=== PATIENT | female | born 1955 | race Caucasian/White ===

== ENCOUNTER → 2019-07-25 11:39 | Outpatient (CLI) | payer OTHER, MEDICAID, SELFPAY ==
[2019-07-27 15:21] LABS: Fecal Immunochemical Test NOT DETECTED (NOT DETECTED)
== END ==
PROVIDERS: PCP Nurse Practitioner; Visit Provider Nurse Practitioner
DX: Z12.11 Encounter for screening for malignant neoplasm of colon (principal)
CPT/HCPCS: 82274

== ENCOUNTER → 2019-10-23 11:48 | Outpatient (CLI) | payer OTHER, MEDICAID, SELFPAY ==
--- NOTE | 2019-10-23 11:50 | DI.RAD.S_ITS ---
PROCEDURE: XR CHEST 2V INDICATIONS: shortness of breath, cough TECHNIQUE: 2 views of the chest were acquired. COMPARISON: [facility], CHEST 2 VIEW, 10/05/2017, 16:09. [facility], , CHEST 2 VIEW, 08/27/2017, 14:05. FINDINGS: Surgical changes and devices: None. Lungs and pleura: Lungs are abnormal, with severe pulmonary hyperexpansion. No pleural effusions or pneumothorax. Mediastinum: Mediastinal contours are normal. Heart size is normal. Bones and chest wall: No suspicious bony abnormalities. Soft tissues appear unremarkable. IMPRESSION: Severe COPD with pulmonary hyperexpansion but no pneumonia or neoplasm is found. Dictated by: Charanjit Vivas M.D. on 10/23/2019 at 15:02 Approved by: Charanjit Vivas M.D. on 10/23/2019 at 15:02
== END ==
PROVIDERS: PCP Nurse Practitioner; Referring Provider Nurse Practitioner; Visit Provider Nurse Practitioner
DX: R06.02 Shortness of breath (principal); J44.1 Chronic obstructive pulmonary disease with (acute) exacerbation; R05 Cough; R50.9 Fever, unspecified
CPT/HCPCS: 71046

== ENCOUNTER → 2019-11-21 12:01 | Outpatient (CLI) | payer OTHER, MEDICAID, SELFPAY ==
[2019-11-21 13:05] LABS: Hematocrit 40.1 % (36-46); Hemoglobin 13.4 g/dL (12.0-16.0); Mean Corpuscular HGB Conc 33.4 % (30-36); Mean Corpuscular Hemoglobin 31.3 PG (26-34); Mean Corpuscular Volume 93.6 fL (80-100); Platelet Count 309 X10^3/uL (150-400); Red Blood Cell Count 4.28 X10^6/uL (4.0-5.2); Red Cell Distribution Width 12.4 % (11.6-14.8); White Blood Cell Count 7.2 X10^3/uL (4.5-11.0)
[2019-11-21 13:47] LABS: Alanine Aminotransferase 19 IU/L (<35); Albumin 4.4 g/dL (3.5-5.0); Albumin Globulin Ratio 1.6 (1.0-2.8); Alkaline Phosphatase 68 U/L (38-126); Aspartate Aminotransferase 26 IU/L (14-36); BUN Creatinine Ratio 15.7 (6-22); Bilirubin Total 0.4 mg/dL (0.2-1.3); Blood Urea Nitrogen 11 mg/dL (7-17); Calcium 10.1 mg/dL (8.4-10.2); Carbon Dioxide 36 mmol/L (22-32); Chloride 95 mmol/L (98-107); Cholesterol 189 mg/dL (140-199); Estimated Glomerular Filt Rate > 60.0 mL/min (>60); Globulin 2.7 g/dL (1.7-4.1); Glucose 124 mg/dL (80-110); HDL Cholesterol 45 mg/dL (40-60); HEMOLYSIS < 15 (0-50); LDL Cholesterol Calculated 130 mg/dL (<100); Potassium 4.5 mmol/L (3.4-5.1); Sodium 140 mmol/L (137-145); Total Protein 7.1 g/dL (6.3-8.2); Triglycerides 72 mg/dL (35-150)
[2019-11-21 15:33] LABS: Neutrophils Absolute Manual 4824 /uL (3000-5900); Total Cells Counted 100
[2019-11-21 15:34] LABS: RBC Morphology Normal Morphology
== END ==
PROVIDERS: PCP Nurse Practitioner; Referring Provider Nurse Practitioner; Visit Provider Nurse Practitioner
DX: J96.90 Respiratory failure, unspecified, unspecified whether with hypoxia or hypercapnia (principal); R63.0 Anorexia; R64 Cachexia
CPT/HCPCS: 36415; 80053; 80061; 85025

== ENCOUNTER 2019-11-21 14:55 | Observation (INO) | payer OTHER, MEDICAID, SELFPAY ==
[2019-11-21] VITALS (16 sets, daily range): BP systolic 99–177; BP diastolic 64–86; PULSE 106–122; RESP 16–45; TEMP 36.4–36.8; O2SAT 67–99; BMI 17.9
--- NOTE | 2019-11-21 15:27 | DI.RAD.S_ITS ---
PROCEDURE: XR CHEST 1V INDICATIONS: respiratory distress, hx of COPD TECHNIQUE: One view of the chest was acquired. COMPARISON: [facility], CR, XR CHEST 2V, 10/23/2019, 11:50. FINDINGS: Surgical changes and devices: None. Lungs and pleura: Lungs are clear. Hyperinflation is seen. No pleural effusions or pneumothorax. Mediastinum: Mediastinal contours appear normal. Heart size is normal. Bones and chest wall: No suspicious bony lesions. Overlying soft tissues appear unremarkable. IMPRESSION: COPD. No acute pulmonary pathology. Dictated by: Donny Parsons M.D. on 11/21/2019 at 16:24 Approved by: Donny Parsons M.D. on 11/21/2019 at 16:24
[2019-11-21] MEDS: ALBUTEROL/IPRATROPIUM 3 ML AMPUL INH ×3 (15:36→23:17)
[2019-11-21 15:41] LABS: Add Manual Diff / Slide Review NO; Basophils Absolute Auto 0 /uL (0-100); Basophils Percent Auto 0.3 % (0-2); Eosinophils Absolute Auto 0 /uL (0-450); Eosinophils Percent Auto 0.5 % (2-4); Hematocrit 38.9 % (36-46); Hemoglobin 13.3 g/dL (12.0-16.0); Lymphocytes Absolute Auto 1500 /uL (1100-4500); Lymphocytes Percent Auto 15.6 % (25-40); Mean Corpuscular HGB Conc 34.1 % (30-36); Mean Corpuscular Hemoglobin 31.8 PG (26-34); Mean Corpuscular Volume 93.3 fL (80-100); Monocytes Absolute Auto 400 /uL (0-900); Monocytes Percent Auto 4.1 % (3-14); Neutrophils Absolute Auto 7500 /uL (1500-7000); Neutrophils Percent Auto 79.5 % (50-75); Platelet Count 320 X10^3/uL (150-400); Red Blood Cell Count 4.17 X10^6/uL (4.0-5.2); Red Cell Distribution Width 12.6 % (11.6-14.8); White Blood Cell Count 9.4 X10^3/uL (4.5-11.0)
[2019-11-21 15:42] LABS: Prothrombin Time 11.7 SECONDS (10.1-12.7)
[2019-11-21 15:44] LABS: PTT Partial Thromboplastin Tim 31 SECONDS (26.4-36.2)
[2019-11-21] MEDS: SODIUM CHLORIDE 0.9% 1,000 ML 150 ML IV (15:48)
[2019-11-21] MEDS: methylPREDNISolone 125 MG/2 ML VIAL IV (15:48)
[2019-11-21 15:50] LABS: Creatine Kinase 35 U/L (30-135); Magnesium 2.1 mg/dL (1.6-2.3)
[2019-11-21 15:51] LABS: Alanine Aminotransferase 20 IU/L (<35); Albumin 4.5 g/dL (3.5-5.0); Albumin Globulin Ratio 1.5 (1.0-2.8); Alkaline Phosphatase 70 U/L (38-126); Aspartate Aminotransferase 31 IU/L (14-36); BUN Creatinine Ratio 18.3 (6-22); Bacteria Urine None Seen; Bilirubin Total 0.4 mg/dL (0.2-1.3); Blood Urea Nitrogen 11 mg/dL (7-17); Calcium 9.8 mg/dL (8.4-10.2); Carbon Dioxide 37 mmol/L (22-32); Chloride 96 mmol/L (98-107); Estimated Glomerular Filt Rate > 60.0 mL/min (>60); Globulin 3.1 g/dL (1.7-4.1); Glucose 136 mg/dL (80-110); HEMOLYSIS < 15 (0-50); Lactate (Lactic Acid) 0.6 mmol/L (0.7-2.1); Potassium 4.3 mmol/L (3.4-5.1); RBC Urine None Seen (0-5/HPF); Sodium 139 mmol/L (137-145); Total Protein 7.6 g/dL (6.3-8.2)
[2019-11-21 15:53] LABS: Appearance Urine UA CLEAR; Bilirubin Urine UA NEGATIVE (NEGATIVE); Color Urine UA YELLOW; Glucose Urine UA NEGATIVE (Negative); Ketones Urine UA NEGATIVE (NEGATIVE); Leukocyte Esterase Urine UA NEGATIVE (NEGATIVE); Nitrite Urine UA NEGATIVE (Negative); Occult Blood Urine UA NEGATIVE (Negative); Protein Urine UA NEGATIVE (Negative); Specific Gravity Urine UA 1.015 (1.000-1.035); Urobilinogen Urine UA 0.2 E.U./dL (0.2)
[2019-11-21 16:00] LABS: Culture Indicated Urine Cult Not Indicated; WBC Urine 0-1/HPF (0-5/HPF)
[2019-11-21 16:01] LABS: PCO2 ABG 63.2 mmHg (35-45); PO2 ABG 76 mmHg (80-100); pH ABG 7.38 (7.35-7.45)
[2019-11-21 16:02] LABS: Troponin I < 0.012 ng/mL (0.01-0.034)
[2019-11-21 16:02] LABS: Fractionated Inspired Oxygen 28; HCO3 ABG 38 mmol/L (22-26); Oxygen Saturation ABG 94 % (95-100); TCO2 ABG 40 mmol/L (21-31)
[2019-11-21 16:05] LABS: Procalcitonin < 0.05 ng/mL (<0.5)
[2019-11-21] MEDS: ALBUTEROL 2.5 MG/3 ML NEB (ADULT) INH (16:15)
--- NOTE | 2019-11-21 16:23 | ED_ITS ---
HPI - SOB/Dyspnea <JONES Chen - Last Filed: 11/21/19 20:49> General Chief Complaint: Upper Respiratory Symptoms Stated Complaint: needs lungs checked out Time Seen by Provider: 11/21/19 15:08 Source: patient and family Mode of arrival: Wheelchair Limitations: no limitations History of Present Illness HPI Narrative: This is a 64 year female, smoker, with history of oxygen-depend ent on 1.5 liter with severe and end-stage COPD presents to ED with spouse with chief complain of increasing short of breath with minimal exertion for last several days but has been gradually worsening since June. Patient reports she has been increasing O2 by nasal cannula up to 2 L, increasing productive cough, slight fever up to 100 degree. Patient reports she takes daily azithromycin 250 mg to maintain and treat inflammation and she had completed a short course of prednisone in the beginning of October. Patient denies recent foreign travel, known exposure to illness. Patient reports has not received flu or pneumococcal vaccination in the past. Patient uses tree allergy CPAP at [facility]. She uses DuoNeb q.4 hours at home. 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 Clark at [facility] but has not seen the provider for several months. Patient reports she has history intubation and using BiPAP and hospitalized in [facility] in the past. Patient states she rather not be intubated but she states a full code for the code status. Patient was at [facility]ois's office today and was referred to ED for increased shortness of breath and hypoxia down to 87% in room air during ambulation. Related Data Home Medications Medication Instructions Recorded Confirmed acetaminophen [Tylenol] 325 mg PO PRN PRN 11/21/19 11/21/19 ibuprofen 200 mg PO PRN PRN 11/21/19 11/21/19 melatonin 1 tab PO BEDTIME 11/21/19 11/21/19 Previous Rx's Medication Instructions Recorded Disabled Parking Permit See Rx Instructions .ROUTE 03/20/19 .COMPLEX #1 unit azithromycin 250 mg tablet 250 mg PO DAILY #30 tab 03/20/19 food supplemt, lactose-reduced 1 each PO 5XD #65604 ml 03/20/19 trazodone 50 mg tablet 150 mg PO HS PRN #90 tab 03/20/19 Ventolin HFA 90 mcg/actuation 2 puff INHALATION Q4-6H PRN #8 09/21/19 aerosol inhaler gram NS alprazolam 0.25 mg tablet 0.25 mg PO BID #30 tab 10/23/19 mometasone-formoterol HFA 200 2 puff INHALATION BID #13 gram 10/23/19 mcg-5 mcg/actuation aerosol inhaler portable oxygen system #1 ea 10/23/19 ipratropium 0.5 mg-albuterol 3 mg 3 ml INHALATION Q6H PRN #360 ml 10/27/19 (2.5 mg base)/3 mL nebulization soln prednisone 40 mg PO DAILY 4 Days #8 tab 11/22/19 Allergies Allergy/AdvReac Type Severity Reaction Status Date / Time cephalexin Allergy Severe Anaphalaxis Verified 11/21/19 15:48 Penicillins AdvReac Mild DIARRHEA Verified 11/21/19 15:48 Review of Systems <JONES Chen - Last Filed: 11/21/19 20:49> Review of Systems Narrative: General: Denies subjective fever and Tmax upto 100 once at home, chills, fatigue, malaise, sweats. HEENT: Denies sinus pain, ear pain, sore throat, difficulty swallowing, dizziness. Respiratory: See HPI Cardiovascular: Denies chest pain, palpitations, orthopnea, edema. Gastrointestinal: Denies nausea, vomiting, abdominal pain, diarrhea, constipation, melena. : Denies dysuria, frequency, incontinence, hematuria, urinary retention. Musculoskeletal: Denies weakness, joint pain or bony pain. Skin: Denies rash, skin lesions, or other. Neurologic: Denies weakness, headache, numbness, change in speech, confusion, se izures, incoordination. Psychiatric: No concerning psychosocial issues. 12-point review of systems is negative except for those stated above. Patient History <JONES Chen - Last Filed: 11/21/19 20:49> Medical History Abnormal chest x-ray (Chronic) Acne (Chronic) Anxiety (Chronic ~2008) Carpal tunnel syndrome (Chronic ~1982) Chicken pox (Resolved ~1962) Chronic back pain (Chronic ~1967) Chronic cough (Chronic) Colitis (Chronic) COPD (chronic obstructive pulmonary disease) (Chronic) Crohn's disease (Chronic) Fecal incontinence (Chronic ~1981) Fractures (Resolved ~1962) GERD (gastroesophageal reflux disease) (Chronic) Headache (Chronic) Heavy menstrual period (Inactive) History of urinary incontinence (Chronic ~2014) Irregular menstrual cycle (Inactive ~1976) Irritable bowel syndrome (Chronic) Measles (Resolved ~1962) Mumps (Resolved) Neck pain (Chronic) Osteoarthritis (Chronic) Osteoporosis (Chronic) Plantar warts (Chronic) Shoulder pain (Chronic ~2013) TIA (transient ischemic attack) (Chronic ~2014) Surgical History Colon polyps (Resolved) History of appendectomy (Resolved) History of tonsillectomy (Resolved) Family History Mother Breast cancer Grandfather No problems noted. Grandmother Cancer Grandfather Cancer Social History household members: significant other Smoking Status: Current every day smoker alcohol intake: never Smoking Status: Current every day smoker alcohol intake frequency: 0-2 drinks per day Substance Use Type: does not use Exam <JONES Chen - Last Filed: 11/21/19 20:49> Narrative Exam Narrative: GEN: Alert, oriented x 3, ill-appearing and under nourished, and in severe respiratory distress. Head: Normal cephalic, atraumatic. No scalp or temporal tenderness, palpable mass or rash. EYES: Pupils are equal, round, and reactive to light and accommodation. Extraocular muscles are intact bilaterally. There is no subconjunctival hemorrhage, exudate and sclera non-icteric. ENT: Bilateral auditory canals and tympanic membranes clear. Hearing grossly intact. Nose without bleeding, purulent discharge or deviation. Facial sinuses nontender to palpate. Mucous membrane moist, no mucosal lesion. Throat without erythema, tonsillar hypertrophy or exudate. Uvula in midline, airway patent. Neck: Trachea in midline. No JVD, non-tender without lymphadenopathy. No masses or thyroid megaly. Supple, non-tender and no meningeal signs. CARDIAC: Normal regular tachy rate without murmurs, gallops, or rubs. No chest wall tenderness. No peripheral edema, cyanosis but pallor. Capillary refill is less than 2 seconds. RESPIRATORY: Pursed lip breathing, unable to complete a sentence, tachypnea of 40/min with o2 sat in 91% on 2Liter by NC. Increased work of breathing with labored effort to breathe with tracheal tugging. Severely decreased lung sounds with scattered wheezing. ABD: Abdomen soft, nontender and non-distended. No guarding or rebound tender ness to palpate. Bowel sounds are normal in all 4 quadrants. There is no palpable masses or organomegaly. EXT: Full painless ROM of all extremities with no loss of sensation, strength, effusion or edema. SKIN: Warm, dry. No erythema, lesions or rash over visible areas. BACK: Nontender without deformity or crepitance. No flank tenderness. NEUROLOGICAL: Alert and oriented to place, time and person. Sensation and motor function intact bilaterally. No facial droops, dysphasia. PSYCHIATRIC: Good judgement and reason, without hallucinations, abnormal affect or abnormal behaviors during the examination. Patient is not suicidal. Initial Vital Signs Initial Vital Signs: Vital Signs Temperature 97.6 F 11/21/19 15:00 Pulse Rate 120 H 11/21/19 15:00 Respiratory Rate 45 H 11/21/19 15:00 Blood Pressure 177/86 H 11/21/19 15:00 Pulse Oximetry 94 11/21/19 15:00 <Lorna Cardozo MD - Last Filed: 11/24/19 09:10> Initial Vital Signs Initial Vital Signs: Vital Signs Temperature 97.6 F 11/21/19 15:00 Pulse Rate 120 H 11/21/19 15:00 Respiratory Rate 45 H 11/21/19 15:00 Blood Pressure 177/86 H 11/21/19 15:00 Pulse Oximetry 94 11/21/19 15:00 Scores <JONES Chen - Last Filed: 11/21/19 20:49> GCS [place] coma scale eye opening: Spontaneous [place] coma scale verbal response: Orientated [place] coma scale motor response: Obey commands [place] coma scale total score: 15 Course <JONES Chen - Last Filed: 11/21/19 20:49> Orders Ordered: Discontinued Medications Acetaminophen (Tylenol) 650 mg PO Q6HR PRN PRN Reason: Fever/Mild Pain (1-3) Albuterol (Ventolin) 2.5 mg INH NOW ONE Stop: 11/21/19 15:58 Last Admin: 11/21/19 16:15 Dose: 2.5 mg Documented by: LILI Albuterol (Ventolin) 2.5 mg INH [id number] PRN PRN Reason: Shortness Of Breath Last Admin: 11/22/19 13:27 Dose: 2.5 mg Documented by: ARDEN Albuterol/Ipratropium (Duoneb) 3 ml INH NOW ONE Stop: 11/21/19 15:27 Last Admin: 11/21/19 15:36 Dose: 3 ml Documented by: LILI Albuterol/Ipratropium (Duoneb) 3 ml INH RTQ4HR PRN PRN Reason: Shortness Of Breath Albuterol/Ipratropium (Duoneb) 3 ml INH RTQ4HR PATRICIA Last Admin: 11/22/19 15:16 Dose: 3 ml Documented by: Admin: 11/22/19 10:52 Dose: 3 ml Documented by: Admin: 11/22/19 08:00 Dose: 3 ml Documented by: Admin: 11/22/19 03:57 Dose: Not Given Documented by: Admin: 11/21/19 23:17 Dose: 3 ml Documented by: Admin: 11/21/19 19:49 Dose: 3 ml Documented by: LIZ Alprazolam (Xanax) 0.25 mg PO BID PRN PRN Reason: Anxiety Last Admin: 11/22/19 02:00 Dose: 0.25 mg Documented by: LILIANA Azithromycin (Zithromax) 250 mg PO DAILY [facility] Last Admin: 11/22/19 08:49 Dose: 250 mg Documented by: Admin: 11/21/19 22:10 Dose: 250 mg Documented by: DEREK Enoxaparin Sodium (Lovenox) 40 mg SUBCUT DAILY [facility] Last Admin: 11/22/19 09:02 Dose: Not Given Documented by: DIANE Sodium Chloride (Normal Saline 0.9%) 1,000 mls @ 150 mls/hr IV CONT PATRICIA Stop: 11/21/19 19:11 Last Infusion: 11/21/19 18:00 Dose: 0 mls/hr Documented by: Admin: 11/21/19 15:48 Dose: 150 mls/hr Documented by: TON Magnesium Sulfate (Magnesium Sulfate) 2 gm in 50 mls @ 25 mls/hr IV NOW ONE Stop: 11/21/19 18:29 Last Infusion: 11/21/19 18:12 Dose: 0 mls/hr Documented by: TON Cosigned by: BETTIE Admin: 11/21/19 16:58 Dose: 25 mls/hr Documented by: TON Cosigned by: KIM Lorazepam (Ativan) 1 mg IV NOW ONE Stop: 11/21/19 16:56 Last Admin: 11/21/19 17:00 Dose: 1 mg Documented by: TON Methylprednisolone (Solu-Medrol 125 Mg Vial) 125 mg IV NOW ONE Stop: 11/21/19 15:30 Last Admin: 11/21/19 15:48 Dose: 125 mg Documented by: TON Prednisone (Deltasone) 40 mg PO DAILY [facility] Last Admin: 11/22/19 08:49 Dose: 40 mg Documented by: DIANE Trazodone HCl (Desyrel) 150 mg PO BEDTIME [facility] Last Admin: 11/21/19 22:07 Dose: 150 mg Documented by: DEREK Vital Signs Vital signs: Vital Signs - 8 hr 11/21/19 15:00 11/21/19 15:30 11/21/19 15:45 Temperature 97.6 F Pulse Rate 120 H 119 H 122 H Respiratory Rate 45 H 39 H 32 H Blood Pressure 177/86 H Blood Pressure [Right Arm] 136/76 128/72 Pulse Oximetry 94 96 96 11/21/19 15:54 11/21/19 16:00 11/21/19 16:15 Temperature Pulse Rate 114 H 114 H 115 H Respiratory Rate 43 H 36 H Blood Pressure Blood Pressure [Right Arm] 132/79 142/84 H Pulse Oximetry 96 67 L 94 11/21/19 16:30 11/21/19 16:37 11/21/19 16:38 Temperature Pulse Rate 116 H 115 H Respiratory Rate 36 H 24 Blood Pressure 130/78 Blood Pressure [Right Arm] 130/78 Pulse Oximetry 95 94 <Lorna Cardozo MD - Last Filed: 11/24/19 09:10> Orders Ordered: Discontinued Medications Acetaminophen (Tylenol) 650 mg PO Q6HR PRN PRN Reason: Fever/Mild Pain (1-3) Albuterol (Ventolin) 2.5 mg INH NOW ONE Stop: 11/21/19 15:58 Last Admin: 11/21/19 16:15 Dose: 2.5 mg Documented by: LILI Albuterol (Ventolin) 2.5 mg INH [id number] PRN PRN Reason: Shortness Of Breath Last Admin: 11/22/19 13:27 Dose: 2.5 mg Documented by: ARDEN Albuterol/Ipratropium (Duoneb) 3 ml INH NOW ONE Stop: 11/21/19 15:27 Last Admin: 11/21/19 15:36 Dose: 3 ml Documented by: LILI Albuterol/Ipratropium (Duoneb) 3 ml INH RTQ4HR PRN PRN Reason: Shortness Of Breath Albuterol/Ipratropium (Duoneb) 3 ml INH RTQ4HR [facility] Last Admin: 11/22/19 15:16 Dose: 3 ml Documented by: Admin: 11/22/19 10:52 Dose: 3 ml Documented by: Admin: 11/22/19 08:00 Dose: 3 ml Documented by: Admin: 11/22/19 03:57 Dose: Not Given Documented by: Admin: 11/21/19 23:17 Dose: 3 ml Documented by: Admin: 11/21/19 19:49 Dose: 3 ml Documented by: LIZ Alprazolam (Xanax) 0.25 mg PO BID PRN PRN Reason: Anxiety Last Admin: 11/22/19 02:00 Dose: 0.25 mg Documented by: LILIANA Azithromycin (Zithromax) 250 mg PO DAILY [facility] Last Admin: 11/22/19 08:49 Dose: 250 mg Documented by: Admin: 11/21/19 22:10 Dose: 250 mg Documented by: DEREK Enoxaparin Sodium (Lovenox) 40 mg SUBCUT DAILY [facility] Last Admin: 11/22/19 09:02 Dose: Not Given Documented by: DIANE Sodium Chloride (Normal Saline 0.9%) 1,000 mls @ 150 mls/hr IV CONT PATRICIA Stop: 11/21/19 19:11 Last Infusion: 11/21/19 18:00 Dose: 0 mls/hr Documented by: Admin: 11/21/19 15:48 Dose: 150 mls/hr Documented by: TON Magnesium Sulfate (Magnesium Sulfate) 2 gm in 50 mls @ 25 mls/hr IV NOW ONE Stop: 11/21/19 18:29 Last Infusion: 11/21/19 18:12 Dose: 0 mls/hr Documented by: TON Cosigned by: BETTIE Admin: 11/21/19 16:58 Dose: 25 mls/hr Documented by: TON Cosigned by: KIM Lorazepam (Ativan) 1 mg IV NOW ONE Stop: 11/21/19 16:56 Last Admin: 11/21/19 17:00 Dose: 1 mg Documented by: TON Methylprednisolone (Solu-Medrol 125 Mg Vial) 125 mg IV NOW ONE Stop: 11/21/19 15:30 Last Admin: 11/21/19 15:48 Dose: 125 mg Documented by: TON Prednisone (Deltasone) 40 mg PO DAILY [facility] Last Admin: 11/22/19 08:49 Dose: 40 mg Documented by: DIANE Trazodone HCl (Desyrel) 150 mg PO BEDTIME [facility] Last Admin: 11/21/19 22:07 Dose: 150 mg Documented by: DEREK Vital Signs Vital signs: Vital Signs - 8 hr 11/21/19 15:00 11/21/19 15:30 11/21/19 15:45 Temperature 97.6 F Pulse Rate 120 H 119 H 122 H Respiratory Rate 45 H 39 H 32 H Blood Pressure 177/86 H Blood Pressure [Right Arm] 136/76 128/72 Pulse Oximetry 94 96 96 11/21/19 15:54 11/21/19 16:00 11/21/19 16:15 Temperature Pulse Rate 114 H 114 H 115 H Respiratory Rate 43 H 36 H Blood Pressure Blood Pressure [Right Arm] 132/79 142/84 H Pulse Oximetry 96 67 L 94 11/21/19 16:30 11/21/19 16:37 11/21/19 16:38 Temperature Pulse Rate 116 H 115 H Respiratory Rate 36 H 24 Blood Pressure 130/78 Blood Pressure [Right Arm] 130/78 Pulse Oximetry 95 94 MDM - SOB/Dyspnea <Newton Henriquez-Oras, [employer] OPERATOR - Last Filed: 11/21/19 20:49> Differential Diagnosis Differential diagnosis: Likely acute exacerbation of chronic obstructive airways disease, community acquired pneumonia and other (Influenza) Medical Records Attestation: I reviewed the patient's medical records. Lab Data Attestation: I reviewed the patient's lab results. Result diagrams: 11/22/19 04:50 11/22/19 04:50 Labs: Lab Results 11/21/19 11/21/19 11/21/19 Range/Units 15:23 15:23 15:23 WBC 9.4 (4.5-11.0) X10^3/uL RBC 4.17 (4.0-5.2) X10^6/uL Hgb 13.3 (12.0-16.0) g/dL Hct 38.9 (36-46) % MCV 93.3 (80-100) fL MCH 31.8 (26-34) PG MCHC 34.1 (30-36) % RDW 12.6 (11.6-14.8) % Plt Count 320 (150-400) X10^3/uL Neut % (Auto) 79.5 H (50-75) % Lymph % (Auto) 15.6 L (25-40) % [place] % (Auto) 4.1 (3-14) % Eos % (Auto) 0.5 L (2-4) % Baso % (Auto) 0.3 (0-2) % Neut # (Auto) 7500 H (9331-3947) /uL Lymph # (Auto) 1500 (7263-1746) /uL [place] # (Auto) 400 (0-900) /uL Eos # (Auto) 0 (0-450) /uL Baso # (Auto) 0 (0-100) /uL PT 11.7 (10.1-12.7) SECONDS INR 1.0 (0.9-1.3) APTT 31 (26.4-36.2) SECONDS ABG pH (7.35-7.45) ABG pCO2 (35-45) mmHg ABG pO2 (80-100) mmHg ABG HCO3 (22-26) mmol/L ABG Total CO2 (21-31) mmol/L ABG O2 Saturation (95-100) % ABG Base Excess (-2-2) mmol/L FiO2 Sodium (137-145) mmol/L Potassium (3.4-5.1) mmol/L Chloride (98-107) mmol/L Carbon Dioxide (22-32) mmol/L BUN (7-17) mg/dL Creatinine (0.52-1.04) mg/dL Estimated GFR (>60) mL/min BUN/Creatinine Ratio (6-22) Glucose (80-110) mg/dL Lactate (0.7-2.1) mmol/L Calcium (8.4-10.2) mg/dL Magnesium 2.1 (1.6-2.3) mg/dL Total Bilirubin (0.2-1.3) mg/dL AST (14-36) IU/L ALT (<35) IU/L Alkaline Phosphatase (38-126) U/L Total Creatine Kinase 35 (30-135) U/L CK-MB (CK-2) TNP CK-MB (CK-2) Rel Index TNP Troponin I < 0.012 (0.01-0.034) ng/mL Total Protein (6.3-8.2) g/dL Albumin (3.5-5.0) g/dL Globulin (1.7-4.1) g/dL Albumin/Globulin Ratio (1.0-2.8) Procalcitonin (<0.5) ng/mL Urine Color Urine Appearance Urine pH (4.5-8.0) Ur Specific [place] (1.000-1.035) Urine Protein (Negative) Urine Glucose (UA) (Negative) g/dL Urine Ketones (NEGATIVE) Urine Occult Blood (Negative) Urine Nitrate (Negative) Urine Bilirubin (NEGATIVE) Urine Urobilinogen (0.2) E.U./dL Ur Leukocyte Esterase (NEGATIVE) Urine RBC (0-5/HPF) Urine WBC (0-5/HPF) Urine Bacteria (None) Ur Culture Indicated? Chlamy pneumoniae PCR (Not Detect) Adenovirus (PCR) (Not Detect) B.parapertussis DNA PCR (Not Detect) Coronavirus OC43 (PCR) (Not Detect) Coronavirus HKU1 (PCR) (Not Detect) Coronavirus 229E (PCR) (Not Detect) Coronavirus NL63 (PCR) (Not Detect) Human Metapneumovir PCR (Not Detect) Influenza Type A (PCR) (Not Detect) Influenza Type B (PCR) (Not Detect) M. pneumoniae (PCR) (Not Detect) Parainfluenza 1 (PCR) (Not Detect) Parainfluenza 2 (PCR) (Not Detect) Parainfluenza 3 (PCR) (Not Detect) Parainfluenza 4 (PCR) (Not Detect) RSV (PCR) (Not Detect) Entero/Rhino (PCR) (Not Detect) 11/21/19 11/21/19 11/21/19 Range/Units 15:23 15:23 15:23 WBC (4.5-11.0) X10^3/uL RBC (4.0-5.2) X10^6/uL Hgb (12.0-16.0) g/dL Hct (36-46) % MCV (80-100) fL MCH (26-34) PG MCHC (30-36) % RDW (11.6-14.8) % Plt Count (150-400) X10^3/uL Neut % (Auto) (50-75) % Lymph % (Auto) (25-40) % [place] % (Auto) (3-14) % Eos % (Auto) (2-4) % Baso % (Auto) (0-2) % Neut # (Auto) (0324-5146) /uL Lymph # (Auto) (2462-5376) /uL [place] # (Auto) (0-900) /uL Eos # (Auto) (0-450) /uL Baso # (Auto) (0-100) /uL PT (10.1-12.7) SECONDS INR (0.9-1.3) APTT (26.4-36.2) SECONDS ABG pH (7.35-7.45) ABG pCO2 (35-45) mmHg ABG pO2 (80-100) mmHg ABG HCO3 (22-26) mmol/L ABG Total CO2 (21-31) mmol/L ABG O2 Saturation (95-100) % ABG Base Excess (-2-2) mmol/L FiO2 Sodium 139 (137-145) mmol/L Potassium 4.3 (3.4-5.1) mmol/L Chloride 96 L (98-107) mmol/L Carbon Dioxide 37 H (22-32) mmol/L BUN 11 (7-17) mg/dL Creatinine 0.60 (0.52-1.04) mg/dL Estimated GFR > 60.0 (>60) mL/min BUN/Creatinine Ratio 18.3 (6-22) Glucose 136 H (80-110) mg/dL Lactate 0.6 L (0.7-2.1) mmol/L Calcium 9.8 (8.4-10.2) mg/dL Magnesium (1.6-2.3) mg/dL Total Bilirubin 0.4 (0.2-1.3) mg/dL AST 31 (14-36) IU/L ALT 20 (<35) IU/L Alkaline Phosphatase 70 (38-126) U/L Total Creatine Kinase (30-135) U/L CK-MB (CK-2) CK-MB (CK-2) Rel Index Troponin I (0.01-0.034) ng/mL Total Protein 7.6 (6.3-8.2) g/dL Albumin 4.5 (3.5-5.0) g/dL Globulin 3.1 (1.7-4.1) g/dL Albumin/Globulin Ratio 1.5 (1.0-2.8) Procalcitonin < 0.05 (<0.5) ng/mL Urine Color Urine Appearance Urine pH (4.5-8.0) Ur Specific [place] (1.000-1.035) Urine Protein (Negative) Urine Glucose (UA) (Negative) g/dL Urine Ketones (NEGATIVE) Urine Occult Blood (Negative) Urine Nitrate (Negative) Urine Bilirubin (NEGATIVE) Urine Urobilinogen (0.2) E.U./dL Ur Leukocyte Esterase (NEGATIVE) Urine RBC (0-5/HPF) Urine WBC (0-5/HPF) Urine Bacteria (None) Ur Culture Indicated? Chlamy pneumoniae PCR (Not Detect) Adenovirus (PCR) (Not Detect) B.parapertussis DNA PCR (Not Detect) Coronavirus OC43 (PCR) (Not Detect) Coronavirus HKU1 (PCR) (Not Detect) Coronavirus 229E (PCR) (Not Detect) Coronavirus NL63 (PCR) (Not Detect) Human Metapneumovir PCR (Not Detect) Influenza Type A (PCR) (Not Detect) Influenza Type B (PCR) (Not Detect) M. pneumoniae (PCR) (Not Detect) Parainfluenza 1 (PCR) (Not Detect) Parainfluenza 2 (PCR) (Not Detect) Parainfluenza 3 (PCR) (Not Detect) Parainfluenza 4 (PCR) (Not Detect) RSV (PCR) (Not Detect) Entero/Rhino (PCR) (Not Detect) 11/21/19 11/21/19 11/21/19 Range/Units 15:23 15:24 15:42 WBC (4.5-11.0) X10^3/uL RBC (4.0-5.2) X10^6/uL Hgb (12.0-16.0) g/dL Hct (36-46) % MCV (80-100) fL MCH (26-34) PG MCHC (30-36) % RDW (11.6-14.8) % Plt Count (150-400) X10^3/uL Neut % (Auto) (50-75) % Lymph % (Auto) (25-40) % [place] % (Auto) (3-14) % Eos % (Auto) (2-4) % Baso % (Auto) (0-2) % Neut # (Auto) (8153-3391) /uL Lymph # (Auto) (3292-6408) /uL [place] # (Auto) (0-900) /uL Eos # (Auto) (0-450) /uL Baso # (Auto) (0-100) /uL PT (10.1-12.7) SECONDS INR (0.9-1.3) APTT (26.4-36.2) SECONDS ABG pH 7.38 (7.35-7.45) ABG pCO2 63.2 H* (35-45) mmHg ABG pO2 76 L (80-100) mmHg ABG HCO3 38 H (22-26) mmol/L ABG Total CO2 40 H (21-31) mmol/L ABG O2 Saturation 94 L (95-100) % ABG Base Excess 13.0 H (-2-2) mmol/L FiO2 28 Sodium (137-145) mmol/L Potassium (3.4-5.1) mmol/L Chloride (98-107) mmol/L Carbon Dioxide (22-32) mmol/L BUN (7-17) mg/dL Creatinine (0.52-1.04) mg/dL Estimated GFR (>60) mL/min BUN/Creatinine Ratio (6-22) Glucose (80-110) mg/dL Lactate (0.7-2.1) mmol/L Calcium (8.4-10.2) mg/dL Magnesium (1.6-2.3) mg/dL Total Bilirubin (0.2-1.3) mg/dL AST (14-36) IU/L ALT (<35) IU/L Alkaline Phosphatase (38-126) U/L Total Creatine Kinase (30-135) U/L CK-MB (CK-2) CK-MB (CK-2) Rel Index Troponin I (0.01-0.034) ng/mL Total Protein (6.3-8.2) g/dL Albumin (3.5-5.0) g/dL Globulin (1.7-4.1) g/dL Albumin/Globulin Ratio (1.0-2.8) Procalcitonin (<0.5) ng/mL Urine Color Yellow Urine Appearance Clear Urine pH 7.0 (4.5-8.0) Ur Specific [place] 1.015 (1.000-1.035) Urine Protein Negative (Negative) Urine Glucose (UA) Negative (Negative) g/dL Urine Ketones Negative (NEGATIVE) Urine Occult Blood Negative (Negative) Urine Nitrate Negative (Negative) Urine Bilirubin Negative (NEGATIVE) Urine Urobilinogen 0.2 (0.2) E.U./dL Ur Leukocyte Esterase Negative (NEGATIVE) Urine RBC None seen (0-5/HPF) Urine WBC 0-1/hpf (0-5/HPF) Urine Bacteria None seen (None) Ur Culture Indicated? Cult not indicated Chlamy pneumoniae PCR Not detected (Not Detect) Adenovirus (PCR) Not detected (Not Detect) B.parapertussis DNA PCR Not detected (Not Detect) Coronavirus OC43 (PCR) Not detected (Not Detect) Coronavirus HKU1 (PCR) Not detected (Not Detect) Coronavirus 229E (PCR) Not detected (Not Detect) Coronavirus NL63 (PCR) Not detected (Not Detect) Human Metapneumovir PCR Not detected (Not Detect) Influenza Type A (PCR) Not detected (Not Detect) Influenza Type B (PCR) Not detected (Not Detect) M. pneumoniae (PCR) Not detected (Not Detect) Parainfluenza 1 (PCR) Not detected (Not Detect) Parainfluenza 2 (PCR) Not detected (Not Detect) Parainfluenza 3 (PCR) Not detected (Not Detect) Parainfluenza 4 (PCR) Not detected (Not Detect) RSV (PCR) Not detected (Not Detect) Entero/Rhino (PCR) Not detected (Not Detect) ABG Data ABG results: pH: 7.384 PCO2 63.2 PO2: 76 BE: 12 HCO3: 37.8 TCO2: 40 sO2 94% on 2L NC Interpretation: Compensated Resp acidosis Imaging Data Chest x-ray: Radiologist's Impression: [address] [address] XRay Report Signed Patient: Leydi East JMR#: [id number] : 5Acct:[id number] Age/Sex: 64 / FDate of Service: 11/21/19 Loc: ED Accession Number: [id number] Procedure: XR chest 1V Ordering Provider: Newton Martin PROCEDURE: XR CHEST 1V INDICATIONS: respiratory distress, hx of COPD TECHNIQUE: One view of the chest was acquired. COMPARISON: [facility], , XR CHEST 2V, 10/23/2019, 11:50. FINDINGS: Surgical changes and devices: None. Lungs and pleura: Lungs are clear. Hyperinflation is seen. No pleural effusions or pneumothorax. Mediastinum: Mediastinal contours appear normal. Heart size is normal. Bones and chest wall: No suspicious bony lesions. Overlying soft tissues appear unremarkable. IMPRESSION: COPD. No acute pulmonary pathology. Dictated by: Donny Parsons M.D. on 11/21/2019 at 16:24 Approved by: Donny Parsons M.D. on 11/21/2019 at 16:24 ECG Data Attestation: I personally reviewed and interpreted this ECG as follows: Prior ECG tracings: available for review Interpretation: Sinus tachycardia rate at 112 with short P are interval [place] int 116, QRS dur 82, QT/QTc 330/396 No significant changes from previous EKG. MDM Narrative Medical decision making narrative: This is a 64-year-old female, smoker, who has history of severe and end-stage COPD with intubation and BiPAP machine use presents to ED with increasing short of breath and productive cough. Patient is oxygen dependent at home at 1.5 L by nasal cannula and has been using 2 L due to increasing short of breath. Patient initially went in to see AVERY dubois for her symptoms and she was referred to ED due to hypoxia and increased short of breath. When patient was initially evaluated upon arrival, patient had severe tachypnea, increased work of breathing with tracheal tugging, labored and pursed lip breathing and she was unable to speak a full sentence due to short of breath. Patient's O2 sat on 2 L was 91% with tachycardia of 120s. Patient prefer is not to be intubated but wishes to be a full code. Lung sounds are severely decreased with mild wheezing. Chest x-ray does not show acute findings with normal heart size but lungs appears to be hyperinflated. Patient denies fever, chills, recent known exposure to illness. There is no leukocytosis but mildly elevated neutrophil. Venous CO2 was 37 with mildly elevated glucose of 136. There was no elevation of lactate or procalcitonin. EKG was sinus tachycardia rate at 112. Troponin and other cardiac enzymes were negative. Considered pneumonia but patient's lab tests and chest x-ray are not consistent with this. Patient does not have a history of heart failure. Urine test does not indicate infection. Respiratory panel was negative for virus infections. Two blood cultures were obtained and pending for results. Patient was provided with several doses of nebulizer treatments and IV Solu- Medrol 125 mg with gentle IV hydration with normal saline. Patient also was given 2 g of IV magnesium for her symptoms. Patient re-evaluated frequently by myself and noticed patient's condition is not improving significantly and appears to be tired. ABG indicates compensated respiratory acidosis. pH of 7.384, PCO2 of 63.2, PO2 of 76 and HCO3 of 37.8, sO2 of 94% while patient was on O2 by [place] on2 Liter. The patient was started on BiPAP which patient initially did not tolerated well. Patient was given 1 mg of Ativan and patient was able to tolerate the BiPAP machine. Patient's heart rate decreased to 100s with normotensive. Patient currently takes daily Azithromycin [address] Garcia for IV antibiotic medication coverage which is held at this time since patient is af ebrile with out leukocytosis and no evidence of pneumonia per x-ray test. Dr. Garcia kindly accepted patient's care for an admission for observation. <Lorna Cardozo MD - Last Filed: 11/24/19 09:10> Lab Data Labs: Lab Results 11/21/19 11/21/19 11/21/19 Range/Units 15:23 15:23 15:23 WBC 9.4 (4.5-11.0) X10^3/uL RBC 4.17 (4.0-5.2) X10^6/uL Hgb 13.3 (12.0-16.0) g/dL Hct 38.9 (36-46) % MCV 93.3 (80-100) fL MCH 31.8 (26-34) PG MCHC 34.1 (30-36) % RDW 12.6 (11.6-14.8) % Plt Count 320 (150-400) X10^3/uL Neut % (Auto) 79.5 H (50-75) % Lymph % (Auto) 15.6 L (25-40) % [place] % (Auto) 4.1 (3-14) % Eos % (Auto) 0.5 L (2-4) % Baso % (Auto) 0.3 (0-2) % Neut # (Auto) 7500 H (5443-1758) /uL Lymph # (Auto) 1500 (6934-5114) /uL [place] # (Auto) 400 (0-900) /uL Eos # (Auto) 0 (0-450) /uL Baso # (Auto) 0 (0-100) /uL PT 11.7 (10.1-12.7) SECONDS INR 1.0 (0.9-1.3) APTT 31 (26.4-36.2) SECONDS ABG pH (7.35-7.45) ABG pCO2 (35-45) mmHg ABG pO2 (80-100) mmHg ABG HCO3 (22-26) mmol/L ABG Total CO2 (21-31) mmol/L ABG O2 Saturation (95-100) % ABG Base Excess (-2-2) mmol/L FiO2 Sodium (137-145) mmol/L Potassium (3.4-5.1) mmol/L Chloride (98-107) mmol/L Carbon Dioxide (22-32) mmol/L BUN (7-17) mg/dL Creatinine (0.52-1.04) mg/dL Estimated GFR (>60) mL/min BUN/Creatinine Ratio (6-22) Glucose (80-110) mg/dL Lactate (0.7-2.1) mmol/L Calcium (8.4-10.2) mg/dL Magnesium 2.1 (1.6-2.3) mg/dL Total Bilirubin (0.2-1.3) mg/dL AST (14-36) IU/L ALT (<35) IU/L Alkaline Phosphatase (38-126) U/L Total Creatine Kinase 35 (30-135) U/L CK-MB (CK-2) TNP CK-MB (CK-2) Rel Index TNP Troponin I < 0.012 (0.01-0.034) ng/mL Total Protein (6.3-8.2) g/dL Albumin (3.5-5.0) g/dL Globulin (1.7-4.1) g/dL Albumin/Globulin Ratio (1.0-2.8) Procalcitonin (<0.5) ng/mL Urine Color Urine Appearance Urine pH (4.5-8.0) Ur Specific [place] (1.000-1.035) Urine Protein (Negative) Urine Glucose (UA) (Negative) g/dL Urine Ketones (NEGATIVE) Urine Occult Blood (Negative) Urine Nitrate (Negative) Urine Bilirubin (NEGATIVE) Urine Urobilinogen (0.2) E.U./dL Ur Leukocyte Esterase (NEGATIVE) Urine RBC (0-5/HPF) Urine WBC (0-5/HPF) Urine Bacteria (None) Ur Culture Indicated? Chlamy pneumoniae PCR (Not Detect) Adenovirus (PCR) (Not Detect) B.parapertussis DNA PCR (Not Detect) Coronavirus OC43 (PCR) (Not Detect) Coronavirus HKU1 (PCR) (Not Detect) Coronavirus 229E (PCR) (Not Detect) Coronavirus NL63 (PCR) (Not Detect) Human Metapneumovir PCR (Not Detect) Influenza Type A (PCR) (Not Detect) Influenza Type B (PCR) (Not Detect) M. pneumoniae (PCR) (Not Detect) Parainfluenza 1 (PCR) (Not Detect) Parainfluenza 2 (PCR) (Not Detect) Parainfluenza 3 (PCR) (Not Detect) Parainfluenza 4 (PCR) (Not Detect) RSV (PCR) (Not Detect) Entero/Rhino (PCR) (Not Detect) 11/21/19 11/21/19 11/21/19 Range/Units 15:23 15:23 15:23 WBC (4.5-11.0) X10^3/uL RBC (4.0-5.2) X10^6/uL Hgb (12.0-16.0) g/dL Hct (36-46) % MCV (80-100) fL MCH (26-34) PG MCHC (30-36) % RDW (11.6-14.8) % Plt Count (150-400) X10^3/uL Neut % (Auto) (50-75) % Lymph % (Auto) (25-40) % [place] % (Auto) (3-14) % Eos % (Auto) (2-4) % Baso % (Auto) (0-2) % Neut # (Auto) (1918-6527) /uL Lymph # (Auto) (7392-3763) /uL [place] # (Auto) (0-900) /uL Eos # (Auto) (0-450) /uL Baso # (Auto) (0-100) /uL PT (10.1-12.7) SECONDS INR (0.9-1.3) APTT (26.4-36.2) SECONDS ABG pH (7.35-7.45) ABG pCO2 (35-45) mmHg ABG pO2 (80-100) mmHg ABG HCO3 (22-26) mmol/L ABG Total CO2 (21-31) mmol/L ABG O2 Saturation (95-100) % ABG Base Excess (-2-2) mmol/L FiO2 Sodium 139 (137-145) mmol/L Potassium 4.3 (3.4-5.1) mmol/L Chloride 96 L (98-107) mmol/L Carbon Dioxide 37 H (22-32) mmol/L BUN 11 (7-17) mg/dL Creatinine 0.60 (0.52-1.04) mg/dL Estimated GFR > 60.0 (>60) mL/min BUN/Creatinine Ratio 18.3 (6-22) Glucose 136 H (80-110) mg/dL Lactate 0.6 L (0.7-2.1) mmol/L Calcium 9.8 (8.4-10.2) mg/dL Magnesium (1.6-2.3) mg/dL Total Bilirubin 0.4 (0.2-1.3) mg/dL AST 31 (14-36) IU/L ALT 20 (<35) IU/L Alkaline Phosphatase 70 (38-126) U/L Total Creatine Kinase (30-135) U/L CK-MB (CK-2) CK-MB (CK-2) Rel Index Troponin I (0.01-0.034) ng/mL Total Protein 7.6 (6.3-8.2) g/dL Albumin 4.5 (3.5-5.0) g/dL Globulin 3.1 (1.7-4.1) g/dL Albumin/Globulin Ratio 1.5 (1.0-2.8) Procalcitonin < 0.05 (<0.5) ng/mL Urine Color Urine Appearance Urine pH (4.5-8.0) Ur Specific [place] (1.000-1.035) Urine Protein (Negative) Urine Glucose (UA) (Negative) g/dL Urine Ketones (NEGATIVE) Urine Occult Blood (Negative) Urine Nitrate (Negative) Urine Bilirubin (NEGATIVE) Urine Urobilinogen (0.2) E.U./dL Ur Leukocyte Esterase (NEGATIVE) Urine RBC (0-5/HPF) Urine WBC (0-5/HPF) Urine Bacteria (None) Ur Culture Indicated? Chlamy pneumoniae PCR (Not Detect) Adenovirus (PCR) (Not Detect) B.parapertussis DNA PCR (Not Detect) Coronavirus OC43 (PCR) (Not Detect) Coronavirus HKU1 (PCR) (Not Detect) Coronavirus 229E (PCR) (Not Detect) Coronavirus NL63 (PCR) (Not Detect) Human Metapneumovir PCR (Not Detect) Influenza Type A (PCR) (Not Detect) Influenza Type B (PCR) (Not Detect) M. pneumoniae (PCR) (Not Detect) Parainfluenza 1 (PCR) (Not Detect) Parainfluenza 2 (PCR) (Not Detect) Parainfluenza 3 (PCR) (Not Detect) Parainfluenza 4 (PCR) (Not Detect) RSV (PCR) (Not Detect) Entero/Rhino (PCR) (Not Detect) 11/21/19 11/21/19 11/21/19 Range/Units 15:23 15:24 15:42 WBC (4.5-11.0) X10^3/uL RBC (4.0-5.2) X10^6/uL Hgb (12.0-16.0) g/dL Hct (36-46) % MCV (80-100) fL MCH (26-34) PG MCHC (30-36) % RDW (11.6-14.8) % Plt Count (150-400) X10^3/uL Neut % (Auto) (50-75) % Lymph % (Auto) (25-40) % [place] % (Auto) (3-14) % Eos % (Auto) (2-4) % Baso % (Auto) (0-2) % Neut # (Auto) (7536-0912) /uL Lymph # (Auto) (0330-4739) /uL [place] # (Auto) (0-900) /uL Eos # (Auto) (0-450) /uL Baso # (Auto) (0-100) /uL PT (10.1-12.7) SECONDS INR (0.9-1.3) APTT (26.4-36.2) SECONDS ABG pH 7.38 (7.35-7.45) ABG pCO2 63.2 H* (35-45) mmHg ABG pO2 76 L (80-100) mmHg ABG HCO3 38 H (22-26) mmol/L ABG Total CO2 40 H (21-31) mmol/L ABG O2 Saturation 94 L (95-100) % ABG Base Excess 13.0 H (-2-2) mmol/L FiO2 28 Sodium (137-145) mmol/L Potassium (3.4-5.1) mmol/L Chloride (98-107) mmol/L Carbon Dioxide (22-32) mmol/L BUN (7-17) mg/dL Creatinine (0.52-1.04) mg/dL Estimated GFR (>60) mL/min BUN/Creatinine Ratio (6-22) Glucose (80-110) mg/dL Lactate (0.7-2.1) mmol/L Calcium (8.4-10.2) mg/dL Magnesium (1.6-2.3) mg/dL Total Bilirubin (0.2-1.3) mg/dL AST (14-36) IU/L ALT (<35) IU/L Alkaline Phosphatase (38-126) U/L Total Creatine Kinase (30-135) U/L CK-MB (CK-2) CK-MB (CK-2) Rel Index Troponin I (0.01-0.034) ng/mL Total Protein (6.3-8.2) g/dL Albumin (3.5-5.0) g/dL Globulin (1.7-4.1) g/dL Albumin/Globulin Ratio (1.0-2.8) Procalcitonin (<0.5) ng/mL Urine Color Yellow Urine Appearance Clear Urine pH 7.0 (4.5-8.0) Ur Specific [place] 1.015 (1.000-1.035) Urine Protein Negative (Negative) Urine Glucose (UA) Negative (Negative) g/dL Urine Ketones Negative (NEGATIVE) Urine Occult Blood Negative (Negative) Urine Nitrate Negative (Negative) Urine Bilirubin Negative (NEGATIVE) Urine Urobilinogen 0.2 (0.2) E.U./dL Ur Leukocyte Esterase Negative (NEGATIVE) Urine RBC None seen (0-5/HPF) Urine WBC 0-1/hpf (0-5/HPF) Urine Bacteria None seen (None) Ur Culture Indicated? Cult not indicated Chlamy pneumoniae PCR Not detected (Not Detect) Adenovirus (PCR) Not detected (Not Detect) B.parapertussis DNA PCR Not detected (Not Detect) Coronavirus OC43 (PCR) Not detected (Not Detect) Coronavirus HKU1 (PCR) Not detected (Not Detect) Coronavirus 229E (PCR) Not detected (Not Detect) Coronavirus NL63 (PCR) Not detected (Not Detect) Human Metapneumovir PCR Not detected (Not Detect) Influenza Type A (PCR) Not detected (Not Detect) Influenza Type B (PCR) Not detected (Not Detect) M. pneumoniae (PCR) Not detected (Not Detect) Parainfluenza 1 (PCR) Not detected (Not Detect) Parainfluenza 2 (PCR) Not detected (Not Detect) Parainfluenza 3 (PCR) Not detected (Not Detect) Parainfluenza 4 (PCR) Not detected (Not Detect) RSV (PCR) Not detected (Not Detect) Entero/Rhino (PCR) Not detected (Not Detect) Discharge Plan Departure Patient Disposition: Admitted As Inpatient Clinical Impression: COPD exacerbation, COPD with hypoxia, Respiratory acidosis Discharge Date/Time: 11/21/19 18:00 Instructions: DI for Chronic Obstructive Pulmonary Disease, Smoking and Smoking Cessation in Relation to Mortality in Women, Prednisone (By mouth) Referrals: Kathie Dubois ARNP [Advanced Nurse Advisor] - (Clinic will call patient to schedule follow up appt ) Vikas Mercedes MD [Primary Care Provider] - As previously scheduled (Dr. Mercedes' office will call you with an appointment. If you have not heard back from them within 48 hours, please call the office at [phone] to follow up. ) Admit Date/Time: 11/21/19 16:54 Admit Provider: Brenden Garcia
[2019-11-21 16:57] LABS: Adenovirus Not Detected (Not Detect); Coronavirus 229E Not Detected (Not Detect); Coronavirus HKU1 Not Detected (Not Detect); Coronavirus NL 63 Not Detected (Not Detect); Coronavirus OC43 Not Detected (Not Detect); Human Metapneumovirus Not Detected (Not Detect)
[2019-11-21 16:58] LABS: Bordetella pertussis Not Detected (Not Detect); Chlamydophila pneumoniae Not Detected (Not Detect); Human Rhinovirus/Enterovirus Not Detected (Not Detect); Influenza A Not Detected (Not Detect); Influenza B Not Detected (Not Detect); Mycoplasma pneumoniae Not Detected (Not Detect); Parainfluenza Virus 1 Not Detected (Not Detect); Parainfluenza Virus 2 Not Detected (Not Detect); Parainfluenza Virus 3 Not Detected (Not Detect); Parainfluenza Virus 4 Not Detected (Not Detect); Respiratory Syncytial Virus Not Detected (Not Detect)
[2019-11-21] MEDS: MAGNESIUM SULFATE 2 GM/50 ML PIGGYBACK IV (16:58)
[2019-11-21] MEDS: LORazepam 2 MG/ML INJ 1 MG IV (17:00)
--- NOTE | 2019-11-21 19:40 | P.HP_ITS ---
History of Present Illness History of Present Illness Date Patient Seen: 11/21/19 Time Patient Seen: 19:41 Chief complaint: needs lungs checked out Narrative: Leydi East is a 64-year-old female with past medical history of Crohn's disease and severe COPD on home oxygen who presented with shortness of breath. Patient states it has been slightly worse since june but gradually worsening since june. She was able to walk previously about 50 feet without dyspnea however worsened recently to minimal exertion causing dyspnea. Her history jumps frequently between time periods and it is difficult to get an accurate timeline of events with the patient alone so assistance gatherered from ED chart review. Patient reports increase in O2 to 2 L from 1.5, increasing cough and subjective fever. She denies nasal congetion, mayalgias, or sick contacts. She is on chronic azithromycin therapy and recently completed a course of prednisone in October. She uses a trilogy machine at home as well. She initially presented to primary care office and was then referred to the ED. In the ED, patient was tachycardic and tachypnic, did desaturate to mid 60s on home 1.5 L based on documented vital signs, was told by ED provider desaturated into the mid 80s. ABG was performed which showed a PCO2 of 63. Patient was started on BiPAP and given IV steroids. Patient was admiitted for acute on chronic hypoxemic and hypercarbic respiratory failure. Labs showed normal WBC count, bicarb of 37, lactate of 0.6, glucose 136, procalcitonin negative, and negative UA. Viral PCR panel was negative. Upon arrival to the ICU for BiPAP she was looking improved and was taken off of bipap maintaining her O2 saturations on 2L of Nasal cannula. Patient History Medical History Abnormal chest x-ray (Chronic) Acne (Chronic) Anxiety (Chronic ~2008) Carpal tunnel syndrome (Chronic ~1982) Chicken pox (Resolved ~1962) Chronic back pain (Chronic ~1967) Chronic cough (Chronic) Colitis (Chronic) COPD (chronic obstructive pulmonary disease) (Chronic) Crohn's disease (Chronic) Fecal incontinence (Chronic ~1981) Fractures (Resolved ~1962) GERD (gastroesophageal reflux disease) (Chronic) Headache (Chronic) Heavy menstrual period (Inactive) History of urinary incontinence (Chronic ~2014) Irregular menstrual cycle (Inactive ~1976) Irritable bowel syndrome (Chronic) Measles (Resolved ~1962) Mumps (Resolved) Neck pain (Chronic) Osteoarthritis (Chronic) Osteoporosis (Chronic) Plantar warts (Chronic) Shoulder pain (Chronic ~2013) TIA (transient ischemic attack) (Chronic ~2014) Surgical History Colon polyps (Resolved) History of appendectomy (Resolved) History of tonsillectomy (Resolved) Family & Social History Family History Mother Breast cancer Grandfather No problems noted. Grandmother Cancer Grandfather Cancer Safety & Behavioral: Feels Safe in Current Yes Environment Been Physically Hurt or No Threatened By a Person Tobacco & Substance use: Smoking Status Current every day smoker alcohol intake frequency 0-2 drinks per day Substance Use Type does not use Meds Home Medications and Allergies Home Medications Medication Instructions Recorded Confirmed Type Disabled Parking Permit See Rx Instructions .ROUTE 03/20/19 11/21/19 Rx .COMPLEX #1 unit azithromycin 250 mg tablet 250 mg PO DAILY #30 tab 03/20/19 11/21/19 Rx food supplemt, lactose-reduced 1 each PO 5XD #84877 ml 03/20/19 11/21/19 Rx trazodone 50 mg tablet 150 mg PO HS PRN #90 tab 03/20/19 11/21/19 Rx Ventolin HFA 90 mcg/actuation 2 puff INHALATION Q4-6H PRN #8 09/21/19 11/21/19 Rx aerosol inhaler gram NS alprazolam 0.25 mg tablet 0.25 mg PO BID #30 tab 10/23/19 11/21/19 Rx mometasone-formoterol HFA 200 2 puff INHALATION BID #13 gram 10/23/19 11/21/19 Rx mcg-5 mcg/actuation aerosol inhaler portable oxygen system #1 ea 10/23/19 11/21/19 Rx ipratropium 0.5 mg-albuterol 3 mg 3 ml INHALATION Q6H PRN #360 ml 10/27/19 11/21/19 Rx (2.5 mg base)/3 mL nebulization soln acetaminophen [Tylenol] 325 mg PO PRN PRN 11/21/19 11/21/19 History ibuprofen 200 mg PO PRN PRN 11/21/19 11/21/19 History melatonin 1 tab PO BEDTIME 11/21/19 11/21/19 History Allergies Allergy/AdvReac Type Severity Reaction Status Date / Time cephalexin Allergy Severe Anaphalaxis Verified 11/21/19 15:48 Penicillins AdvReac Mild DIARRHEA Verified 11/21/19 15:48 Review of Systems Review of Systems Narrative: All other systems reviewed with the patient and are negative unless o therwise stated. Exam Vital Signs (past 8 hours): - 11/21/19 15:00 11/21/19 15:30 11/21/19 15:45 Temperature 97.6 F Pulse Rate 120 H 119 H 122 H Respiratory Rate 45 H 39 H 32 H Blood Pressure 177/86 H Blood Pressure [Right Arm] 136/76 128/72 Pulse Oximetry 94 96 96 11/21/19 15:54 11/21/19 16:00 11/21/19 16:15 Temperature Pulse Rate 114 H 114 H 115 H Respiratory Rate 43 H 36 H Blood Pressure Blood Pressure [Right Arm] 132/79 142/84 H Pulse Oximetry 96 67 L 94 11/21/19 16:30 11/21/19 16:37 11/21/19 16:38 Temperature Pulse Rate 116 H 115 H Respiratory Rate 36 H 24 Blood Pressure 130/78 Blood Pressure [Right Arm] 130/78 Pulse Oximetry 95 94 11/21/19 17:05 11/21/19 17:40 11/21/19 18:32 Temperature 98.3 F Pulse Rate 115 H 106 H 111 H Respiratory Rate 18 19 27 H Blood Pressure 118/73 Blood Pressure [Right Arm] 123/76 99/65 Pulse Oximetry 99 95 Fraction of Inspired Oxygen 0.28 Oxygen Delivery Method Nasal Cannula Oxygen Flow Rate 1.5 Narrative Exam Narrative: GENERAL APPEARANCE: Thin, chronically ill appearing female sitting upright in hospital bed, mildly uncomfortable appearing. Breathing with pursed lips. On nasal cannula. SKIN: Inspection of the skin reveals no rashes, ulcerations or petechiae. HEENT: The sclerae were anicteric and conjunctivae were pink and moist. Extraocular movements were intact and pupils were equal, round with normal accommodation. External inspection of the ears and nose showed no scars, lesions, or masses. Lips, teeth, and gums showed normal mucosa. The oral mucosa, hard and soft palate, tongue and posterior pharynx were unremarkable. NECK: Supple and symmetric. There was no thyroid enlargement, and no tenderness, or masses were felt. CHEST: Barrel chested, ribs visible. Equal but diminished rise bilaterally. LUNGS: Auscultation of the lungs revealed no wheezes, rhonchi, or rales but she had makedly diminished air flow. CARDIOVASCULAR: There was a regular rate and rhythm without any murmurs, gallops, rubs. Peripheral pulses were 2+ and symmetric. ABDOMEN: Soft and nontender with normal bowel sounds. No ascites was noted. MUSCULOSKELETAL: There was no tenderness or effusions noted. Muscle strength and tone were normal. EXTREMITIES: No cyanosis, clubbing or edema. NEUROLOGIC: Alert and oriented x 3. Answers questions pulling from multiple time points, but generally appropriate responses. Moves all extremities equally and ambulated from commode to bed without assistance. Objective Labs Result Diagrams: 11/21/19 15:23 11/21/19 15:23 Labs: Laboratory Results - last 24 hr 11/21/19 11/21/19 11/21/19 15:23 15:23 15:23 WBC 9.4 RBC 4.17 Hgb 13.3 Hct 38.9 MCV 93.3 MCH 31.8 MCHC 34.1 RDW 12.6 Plt Count 320 Neut % (Auto) 79.5 H Lymph % (Auto) 15.6 L [place] % (Auto) 4.1 Eos % (Auto) 0.5 L Baso % (Auto) 0.3 Neut # (Auto) 7500 H Lymph # (Auto) 1500 [place] # (Auto) 400 Eos # (Auto) 0 Baso # (Auto) 0 PT 11.7 INR 1.0 APTT 31 ABG pH ABG pCO2 ABG pO2 ABG HCO3 ABG Total CO2 ABG O2 Saturation ABG Base Excess FiO2 Sodium Potassium Chloride Carbon Dioxide BUN Creatinine Estimated GFR BUN/Creatinine Ratio Glucose Lactate Calcium Magnesium 2.1 Total Bilirubin AST ALT Alkaline Phosphatase Total Creatine Kinase 35 CK-MB (CK-2) TNP CK-MB (CK-2) Rel Index TNP Troponin I < 0.012 Total Protein Albumin Globulin Albumin/Globulin Ratio Procalcitonin Urine Color Urine Appearance Urine pH Ur Specific [place] Urine Protein Urine Glucose (UA) Urine Ketones Urine Occult Blood Urine Nitrate Urine Bilirubin Urine Urobilinogen Ur Leukocyte Esterase Urine RBC Urine WBC Urine Bacteria Ur Culture Indicated? Chlamy pneumoniae PCR Adenovirus (PCR) B.parapertussis DNA PCR Coronavirus OC43 (PCR) Coronavirus HKU1 (PCR) Coronavirus 229E (PCR) Coronavirus NL63 (PCR) Human Metapneumovir PCR Influenza Type A (PCR) Influenza Type B (PCR) M. pneumoniae (PCR) Parainfluenza 1 (PCR) Parainfluenza 2 (PCR) Parainfluenza 3 (PCR) Parainfluenza 4 (PCR) RSV (PCR) Entero/Rhino (PCR) 11/21/19 11/21/19 11/21/19 15:23 15:23 15:23 WBC RBC Hgb Hct MCV MCH MCHC RDW Plt Count Neut % (Auto) Lymph % (Auto) [place] % (Auto) Eos % (Auto) Baso % (Auto) Neut # (Auto) Lymph # (Auto) [place] # (Auto) Eos # (Auto) Baso # (Auto) PT INR APTT ABG pH ABG pCO2 ABG pO2 ABG HCO3 ABG Total CO2 ABG O2 Saturation ABG Base Excess FiO2 Sodium 139 Potassium 4.3 Chloride 96 L Carbon Dioxide 37 H BUN 11 Creatinine 0.60 Estimated GFR > 60.0 BUN/Creatinine Ratio 18.3 Glucose 136 H Lactate 0.6 L Calcium 9.8 Magnesium Total Bilirubin 0.4 AST 31 ALT 20 Alkaline Phosphatase 70 Total Creatine Kinase CK-MB (CK-2) CK-MB (CK-2) Rel Index Troponin I Total Protein 7.6 Albumin 4.5 Globulin 3.1 Albumin/Globulin Ratio 1.5 Procalcitonin < 0.05 Urine Color Urine Appearance Urine pH Ur Specific [place] Urine Protein Urine Glucose (UA) Urine Ketones Urine Occult Blood Urine Nitrate Urine Bilirubin Urine Urobilinogen Ur Leukocyte Esterase Urine RBC Urine WBC Urine Bacteria Ur Culture Indicated? Chlamy pneumoniae PCR Adenovirus (PCR) B.parapertussis DNA PCR Coronavirus OC43 (PCR) Coronavirus HKU1 (PCR) Coronavirus 229E (PCR) Coronavirus NL63 (PCR) Human Metapneumovir PCR Influenza Type A (PCR) Influenza Type B (PCR) M. pneumoniae (PCR) Parainfluenza 1 (PCR) Parainfluenza 2 (PCR) Parainfluenza 3 (PCR) Parainfluenza 4 (PCR) RSV (PCR) Entero/Rhino (PCR) 11/21/19 11/21/19 11/21/19 15:23 15:24 15:42 WBC RBC Hgb Hct MCV MCH MCHC RDW Plt Count Neut % (Auto) Lymph % (Auto) [place] % (Auto) Eos % (Auto) Baso % (Auto) Neut # (Auto) Lymph # (Auto) [place] # (Auto) Eos # (Auto) Baso # (Auto) PT INR APTT ABG pH 7.38 ABG pCO2 63.2 H* ABG pO2 76 L ABG HCO3 38 H ABG Total CO2 40 H ABG O2 Saturation 94 L ABG Base Excess 13.0 H FiO2 28 Sodium Potassium Chloride Carbon Dioxide BUN Creatinine Estimated GFR BUN/Creatinine Ratio Glucose Lactate Calcium Magnesium Total Bilirubin AST ALT Alkaline Phosphatase Total Creatine Kinase CK-MB (CK-2) CK-MB (CK-2) Rel Index Troponin I Total Protein Albumin Globulin Albumin/Globulin Ratio Procalcitonin Urine Color Yellow Urine Appearance Clear Urine pH 7.0 Ur Specific [place] 1.015 Urine Protein Negative Urine Glucose (UA) Negative Urine Ketones Negative Urine Occult Blood Negative Urine Nitrate Negative Urine Bilirubin Negative Urine Urobilinogen 0.2 Ur Leukocyte Esterase Negative Urine RBC None seen Urine WBC 0-1/hpf Urine Bacteria None seen Ur Culture Indicated? Cult not indicated Chlamy pneumoniae PCR Not detected Adenovirus (PCR) Not detected B.parapertussis DNA PCR Not detected Coronavirus OC43 (PCR) Not detected Coronavirus HKU1 (PCR) Not detected Coronavirus 229E (PCR) Not detected Coronavirus NL63 (PCR) Not detected Human Metapneumovir PCR Not detected Influenza Type A (PCR) Not detected Influenza Type B (PCR) Not detected M. pneumoniae (PCR) Not detected Parainfluenza 1 (PCR) Not detected Parainfluenza 2 (PCR) Not detected Parainfluenza 3 (PCR) Not detected Parainfluenza 4 (PCR) Not detected RSV (PCR) Not detected Entero/Rhino (PCR) Not detected Assessment & Plan Assessment & Plan narrative: Leydi East is a 64-year-old female with past m edical history of Crohn's disease and COPD who presented with shortness of breath and is admitted under observation status for COPD exacerbation. 1. acute on chronic hypercarbic and hypoxemic respiratory failure - - patient presented with increasing oxygen requirements and hypercarbia on ABG with pCO2 of 63. Patient was on BiPAP therapy, now off after arrival to the ICU. - repeat blood gas in the morning, or if worsening respiratory status overnight - RT eval and treat. Continue duonebs and albuterol. - viral panel negative. Send sputum evaluation. No evidence of pneumonia at this time on chest imaging, lab evaluation. Will hold on additional antibiotics at this time other than home azithromycin. Blood cultures sent in the ED. - given methylprednisolone 125 mg in ED, continue prednisone daily x4 additional days. - unknown baseline CO2, patient previous admission for COPD exacerbation a few years ago with PCO2 of 88. Likely elevated based on bicarb of 37. 2. history of crohn's disease, unknown status - patient with documented history of crohn's disease but not on active treatme nt and no reported symptoms at this time. 3. anxiety, chronic, stable - continue home alprazolam 0.25 mg. Code: full, patient surrogate decision maker is her . DVT: Lovenox daily Dispo: admit as inpatient as her stay is expected to exceed two midnights given underlying COPD and presenting symptoms.
--- NOTE | 2019-11-21 21:11 | PC.NURSE ---
Pt sattgin 96% on 2LNC, pursed lip breathing at times, +SOB with no exertion. Pt states breathing is normal for what she has been since june. Per pt- pt with breathing difficulties and weight loss since June. According to pt- she has had the blahs since june. Satting 92% in BiPap for the evening. Placed on Bipap by RT. Pt lives in trailer next to significant other. No running water. States it is difficult to bathe herself so she doesn't often. Feet noted to be very dirty, potential skin breakdown, caked dirt between toes and hair extensively knotted from laying in bed all day long per patient. Pt does not perform most of her ADLs per report.
[2019-11-21] MEDS: TRAZODONE 50 MG TABLET 150 MG PO (22:07)
[2019-11-21] MEDS: AZITHROMYCIN 250 MG TABLET PO (22:10)
[2019-11-22] VITALS (10 sets, daily range): BP systolic 100–115; BP diastolic 55–65; PULSE 97–119; RESP 16–27; TEMP 36.3–36.7; O2SAT 90–99
--- NOTE | 2019-11-22 00:38 | PC.NURSE ---
Addendum entered by Ajay Tracey R.N. 11/22/19 02:18: 0200: Pt restless, sitting up, laying down, pulled at heart monitor wires. monitoring tech wires re-applied. Offered pt Xanax. Xanax 0.25mg given po. Addendum entered by Ajay Tracey R.N. 11/22/19 02:15: 0140: RT notified that pt is asking for a neb tx. RT at bedside, offered to put pt on BiPAP since too soon for another neb tx. Pt agreed, and was placed on BiPAP. 0145: Pt removed BiPAP, didn't want to wear it. Placed back on 2L O2 via NC. RT notified that pt does not want to be on BiPAP. 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 Vital signs stable. IVs in place in rt forearm and rt AC. Pt remains on cardiac rehabilitation program director. Pt asking for her red coat, and took out an inhaler. Advised pt to not take her own home medications, and have the respiratory therapist see her. Pt stated that she has not received any treatments since coming here. RT notified.
[2019-11-22] MEDS: ALPRAZolam 0.25 MG TABLET PO (02:00)
[2019-11-22 05:03] LABS: Add Manual Diff / Slide Review NO; Basophils Absolute Auto 0 /uL (0-100); Basophils Percent Auto 0.4 % (0-2); Eosinophils Absolute Auto 0 /uL (0-450); Hematocrit 35.3 % (36-46); Hemoglobin 11.8 g/dL (12.0-16.0); Lymphocytes Absolute Auto 1000 /uL (1100-4500); Mean Corpuscular HGB Conc 33.5 % (30-36); Mean Corpuscular Hemoglobin 31.1 PG (26-34); Mean Corpuscular Volume 92.9 fL (80-100); Monocytes Absolute Auto 300 /uL (0-900); Monocytes Percent Auto 2.8 % (3-14); Neutrophils Absolute Auto 8600 /uL (1500-7000); Neutrophils Percent Auto 86.8 % (50-75); Platelet Count 280 X10^3/uL (150-400); Red Blood Cell Count 3.79 X10^6/uL (4.0-5.2); Red Cell Distribution Width 12.7 % (11.6-14.8); White Blood Cell Count 9.9 X10^3/uL (4.5-11.0)
[2019-11-22 05:04] LABS: Alanine Aminotransferase 17 IU/L (<35); Albumin Globulin Ratio 1.4 (1.0-2.8); Alkaline Phosphatase 51 U/L (38-126); Aspartate Aminotransferase 23 IU/L (14-36); BUN Creatinine Ratio 26.7 (6-22); Bilirubin Total 0.2 mg/dL (0.2-1.3); Bilirubin Unconjugated 0.2 mg/dL (0.0-1.1); Blood Urea Nitrogen 16 mg/dL (7-17); Calcium 9.3 mg/dL (8.4-10.2); Carbon Dioxide 36 mmol/L (22-32); Chloride 97 mmol/L (98-107); Estimated Glomerular Filt Rate > 60.0 mL/min (>60); Globulin 2.8 g/dL (1.7-4.1); Glucose 129 mg/dL (80-110); HEMOLYSIS < 15 (0-50); Magnesium 2.4 mg/dL (1.6-2.3); Potassium 4.9 mmol/L (3.4-5.1); Sodium 138 mmol/L (137-145); Total Protein 6.8 g/dL (6.3-8.2)
[2019-11-22 05:51] LABS: TSH w/ Reflex to FT4 0.46 uIU/mL (0.47-4.68)
[2019-11-22 06:21] LABS: Free T4, Direct Thyroxine 0.91 ng/dL (0.78-2.19)
[2019-11-22] MEDS: ALBUTEROL/IPRATROPIUM 3 ML AMPUL INH ×3 (08:00→15:16)
[2019-11-22] MEDS: AZITHROMYCIN 250 MG TABLET PO (08:49)
[2019-11-22] MEDS: predniSONE 20 MG TABLET 40 MG PO (08:49)
--- NOTE | 2019-11-22 10:12 | PT.IIE ---
Surgical History (Last Reviewed 11/21/19 @ 17:56 by JONES Chen) Colon polyps (Resolved) History of appendectomy (Resolved) History of tonsillectomy (Resolved) Medical History (Last Reviewed 11/21/19 @ 17:56 by JONES Chen) Abnormal chest x-ray (Chronic) Acne (Chronic) Anxiety (Chronic ~2008) Carpal tunnel syndrome (Chronic ~1982) Chicken pox (Resolved ~1962) Chronic back pain (Chronic ~1967) Chronic cough (Chronic) Colitis (Chronic) COPD (chronic obstructive pulmonary disease) (Chronic) Crohn's disease (Chronic) Fecal incontinence (Chronic ~1981) Fractures (Resolved ~1962) GERD (gastroesophageal reflux disease) (Chronic) Headache (Chronic) Heavy menstrual period (Inactive) History of urinary incontinence (Chronic ~2014) Irregular menstrual cycle (Inactive ~1976) Irritable bowel syndrome (Chronic) Measles (Resolved ~1962) Mumps (Resolved) Neck pain (Chronic) Osteoarthritis (Chronic) Osteoporosis (Chronic) Plantar warts (Chronic) Shoulder pain (Chronic ~2013) TIA (transient ischemic attack) (Chronic ~2014) Physical Therapy Inpatient Evaluation/Re-Eval M1 PT/OT-IP Prior Functional Status Start: 11/22/19 10:56 Freq: NEEDED Status: Active Protocol: Document 11/22/19 10:12 AB (Rec: 11/22/19 11:08 [id number]) Medical Review Prior Functional Status Medical History Reviewed Yes Communication able to make needs known Mobility and Gait pt stated that she is modified independent with all mobilities without AD indoors but uses a 4WW outdoors Prior Functional Level (Other details) uses O2 24/7 Social History Household Members significant other Living Arrangements Mobile home Number of Floors (Floors) One Floor Number of Stairs To Enter/Railing? 2 steps to enter with R grab bar by the door Home Environment Standard Height Toilet,Tub/ Shower Home Equipment Four Wheel Walker,Manual Wheelchair Additional Social History Comment pt stated that they don't have running water and cannot do a shower but rather sponge bathe M2 PT-IP Current Condition Start: 11/22/19 10:56 Freq: NEEDED Status: Active Protocol: Document 11/22/19 10:12 AB (Rec: 11/22/19 11:08 AB [id number]) Physical Therapy Current Condition Current Condition Evaluation Date 11/22/19 Treatment Diagnosis COPD exacerbation; generalized weakness Onset Date 11/21/2019 Precautions Other Precautions O2 sat M3 PT-IP Subjective Start: 11/22/19 10:56 Freq: NEEDED Status: Active Protocol: Document 11/22/19 10:12 AB (Rec: 11/22/19 11:08 AB [id number]) Subjective Physical Therapy Visit Type Type Initial Evaluation Visit Start Time 10:12 Visit Stop Time 10:38 Total Visit Minutes 26 Number of [employer]ANT Visits 0 Physical Therapy Visit Comments Patient Comments pt agreeable to do PT M4 PT-IP Mobility and Gait Start: 11/22/19 10:56 Freq: NEEDED Status: Active Protocol: Document 11/22/19 10:12 AB (Rec: 11/22/19 11:08 AB [id number]) PT-Bed Mobility Assessment Supine to Sit Supine to Sit Independent,Head of Bed Elevated Sit to Supine Sit to Supine Independent,Head of Bed Elevated PT-Transfer Assessment Sit to and From Stand Sit to and from Stand Standby Assistance Equipment Transfer Assistive Device None,Gait Belt Transfer Ability Level of Assist Standby Assistance Comments Mobility Comments pt refused to sit up on chair but agreed to do PT. O2 sat at 2L/min at rest 97% decreased to ~ 83% with ambulation and increased to 90% in ~ 20 sec with PLB. RR at rest ~ 30 and increases to 63-66 with mobility. completed supine to sit independent . pt sat on EOB SBA. completed sit to stand SBA and ambulated ~ 20 ft in room SBA. pt pushed O2 tank. increase RR during mobility to ~ 63 - 66. instructed pt to rest. pt requested to lay back in bed and completed sit to supine independent. positioned pt in bed. call light and table placed within reach. Gait Assessment Gait Gait Assistance Required: Standby Assistance Distance (Feet) 20 Able to Maintain Weight Bearing Status Yes During Gait Assistive Devices Assistive Device None,Gait Belt Orthotic/Prosthetic Devices or Brace: No Factors Limiting Gait Function Factors Limiting Gait Function Decreased Activity Tolerance, Poor Safety Awareness, Respiratory Distress PT-Balance Assessment Sitting Balance and Reactions Static Sitting Balance Ability Normal Dynamic Sitting Balance Ability Normal Standing Balance and Reactions Static Standing Balance Ability Good Dynamic Standing Balance Ability Fair Device Used without AD M5 PT-IP Objective Assessments Start: 11/22/19 10:56 Freq: NEEDED Status: Active Protocol: Document 11/22/19 10:12 AB (Rec: 11/22/19 11:08 AB [id number]) Orientation Orientation/Cognition Level of Alertness Alert Orientation Name,Place,Situation Safety Awareness Decreased Safety Awareness Strength Lower Extremity Strength Hip 4-/5 Knee 4-/5 Coordination Assessment Gross Coordination Gross Coordination WNL Muscle Tone Muscle Tone WNL Yes M6 PT-IP Treatment Start: 11/22/19 10:56 Freq: NEEDED Status: Active Protocol: Document 11/22/19 10:12 AB (Rec: 11/22/19 11:08 AB [id number]) Physical Therapy Treatment Education Education Provided Safety M7 PT-IP Assessment and Plan Start: 11/22/19 10:56 Freq: NEEDED Status: Active Protocol: Document 11/22/19 10:12 AB (Rec: 11/22/19 11:08 AB [id number]) PT Summary Assessment and Plan Potential Rehabilitation Potential Good Status of Condition at Evaluation Evolving Summary Impairments Strength,Balance,Bed Mobility, Transfers,Gait,Activity Tolerance Assessment Summary pt requiring SBA with mobility but with decrease activity tolerance affecting mobility. (+) SOB wiht O2 sat decreasing to ~ 83% with activity with O2 at 2L/min and RR increases to 63-66 bpm with activity from ~ 30 bpm. pt will have her significant other to assist her at home but will benefit from outpt cardiopulmonary rehab. Goals Transfer Goal Independent Gait Goal Independent Gait Distance 150 Other Goals up/down 2 steps with R handle bar SBA Days to Meet Goals 10 Frequency of Treatment Frequency Of Treatment Once a Day Treatment Plan Physical Therapy Treatment Plan Bed Mobility Training,Transfer Training,Gait Training, Therapeutic Exercise,Balance Retraining,Discharge Planning, Hot or Cold Pack,Neuromuscular Re-ed Other Recommendations and Next Treatment ambulation Focus Recommendations To Nursing Amount of Assist Needed Standby Assistance Discharge Recommendations PT Discharge Recommendations Home with Assistance, Outpatient PT Transportation Needs at Discharge Private Vehicle
--- NOTE | 2019-11-22 11:11 | CM.DANOTE ---
Addendum entered by Lucretia Rueda R.N. 11/22/19 14:24: Patient has discharge orders. Called [facility] to see if they accept her insurance. Stated that they would have their director paid media review to ensure that they can accept. Went ahead and faxed over face to face, orders, face sheet, H&P, and orders. [facility] stated that they would call this cyanide case hardener back if there were any concerns. Original Note: DCP: Case received, EMR reviewed and met with patient. Introduced self and role. Was able to meet with patient in her room to obtain baseline health and activity information, included during team rounds. DCP assessment completed with information currently available. Patient is a 64 year old female who admitted yesterday afternoon to the care of the hospitalist team. PCP: Dr. Mercedes. Payer: confirmed: [facility] [employer]/Medicaid. Patient came to the hospital via family vehicle secondary to having increased shortness of breath. Patient has history of end stage COPD, and is on home oxygen of 1.5 liters. Patient also has CPAP, and is on Z-pack as prophalactic treatment. Patient also has history of Chron's disease. Her current diagnosis is exacerbation of her COPD. She is getting steroid therapy here in the hospital. Met with patient in her room. She is alert and oriented. Dr. Garcia mentioned some hygiene concerns. She lives on [address] [facility] [address] [facility] in a mobile home with her significant other, James Cornejo. Patient uses a cane/walker around the house, and has been driving. Patient denied having any [employer] caregivers. Stated that is like her caregiver. Discussed condition of patient during team rounds. Mentioned home health, for nursing could come to her home and assess, along with bath aide, and P.T/O.T. Patient will be working with P.T. today. Already had Dr. Garcia sign face to face. Patient would need to use [facility], as long as they accept her insurance, for they are the only agency that goes to [facility]. Will confirm with [facility] upon discharge. P: Patient could potentially discharge home today after she works with P.T. Lucretia Rueda RN/Book Agent
--- NOTE | 2019-11-22 12:50 | PM.DS.1 ---
History of Present Illness History of Present Illness Date Patient Seen: 11/22/19 Time Patient Seen: 11:00 Chief complaint: needs lungs checked out Narrative: Leydi East is a 64-year-old female with past medical history of Crohn's disease and severe COPD on home oxygen who presented with shortness of breath. Patient states it has been slightly worse since june but gradually worsening since june. She was able to walk previously about 50 feet without dyspnea however worsened recently to minimal exertion causing dyspnea. Her history jumps frequently between time periods and it is difficult to get an accurate timeline of events with the patient alone so assistance gatherered from ED chart review. Patient reports increase in O2 to 2 L from 1.5, increasing cough and subjective fever. She denies nasal congetion, mayalgias, or sick contacts. She is on chronic azithromycin therapy and recently completed a course of prednisone in October. She uses a trilogy machine at home as well. She initially presented to primary care office and was then referred to the ED. In the ED, patient was tachycardic and tachypnic, did desaturate to mid 60s on home 1.5 L based on documented vital signs, was told by ED provider desaturated into the mid 80s. ABG was performed which showed a PCO2 of 63. Patient was started on BiPAP and given IV steroids. Patient was admiitted for acute on chronic hypoxemic and hypercarbic respiratory failure. Labs showed normal WBC count, bicarb of 37, lactate of 0.6, glucose 136, procalcitonin negative, and negative UA. Viral PCR panel was negative. Upon arrival to the ICU for BiPAP she was looking improved and was taken off of bipap maintaining her O2 saturations on 2L of Nasal cannula. Discharge Providers Provider Date of admission: 11/21/19 16:54 Discharge Date: 11/22/19 Primary care physician: Vikas Mercedes MD Consults: 11/21/19 15:26 Consult to Respiratory Therapy Evaluate & Treat Comment: Physician Instructions: Evaluate and treat 11/21/19 19:12 Consult to Occupational Therapy Evaluate & Treat Comment: Physician Instructions: Evaluate and treat Consult to Physical Therapy Evaluate & Treat Comment: Physician Instructions: Evaluate and Treat Discharge provider: Brenden Garcia DO Summary Hospital Course Discharge Diagnosis: Leydi East is a 64-year-old female with past medical history of Crohn's disease and COPD who presented with shortness of breath and is admitted under observation status for COPD exacerbation. 1. acute on chronic hypercarbic and hypoxemic respiratory failure, resolved, present on admission- 2. COPD exacerbation, present on admission, active 3. History of crohn's disease, unknown status 4. Anxiety, chronic, stable Hospital Course: Patient was admitted under observation status for likely COPD exacerbation. She was initially on BiPAP on arrival to the ICU, but was quickly taken off. She improved quite rapidly with steroids, and returned very close to her baseline breathing upon discharge. Her boyfriend communicated that her breathing issues had been worsened since changing of her trilogy settings last June. Patient was discharged with a course of prednisone to complete over the next 4 days. Also fax over an order form to change her home trilogy settings back to what they were before. She did not show any evidence of infection on lab, history, or radiographic findings. Respiratory panel was also negative for viral cause of COPD exacerbation. Her pCO2 was in the 60s, which was fairly consistent with her prior blood gases here. Patient was discharged home with planned home health evaluation, with outpatient social work evaluation as well. Status at Discharge Cognitive/behavioral status at discharge: at baseline, oriented Overall status at discharge: patient is progressing back to baseline Exam Vital Signs (past 8 hours): - 11/22/19 07:41 11/22/19 08:02 11/22/19 11:03 Temperature 97.8 F Pulse Rate 97 H 103 H 98 H Respiratory Rate 20 18 18 Blood Pressure 100/57 L Pulse Oximetry 94 94 95 Fraction of Inspired Oxygen 0.28 Oxygen Delivery Method Nasal Cannula Oxygen Flow Rate 2 Narrative Exam Narrative: GENERAL APPEARANCE: Thin, chronically ill appearing female sitting upright in hospital bed, on nasal cannula and comfortable appearing. SKIN: Inspection of the skin reveals no rashes, ulcerations or petechiae. HEENT: The sclerae were anicteric and conjunctivae were pink and moist. Extraocular movements were intact and pupils were equal, round with normal accommodation. External inspection of the ears and nose showed no scars, lesions, or masses. Lips, teeth, and gums showed normal mucosa. The oral mucosa, hard and soft palate, tongue and posterior pharynx were unremarkable. NECK: Supple and symmetric. There was no thyroid enlargement, and no tenderness, or masses were felt. CHEST: Barrel chested, ribs visible. Equal but diminished rise bilaterally. LUNGS: Auscultation of the lungs revealed no wheezes, rhonchi, or rales. She had notably improved airflow this morning. CARDIOVASCULAR: There was a regular rate and rhythm without any murmurs, gallops, rubs. Peripheral pulses were 2+ and symmetric. ABDOMEN: Soft and nontender with normal bowel sounds. No ascites was noted. MUSCULOSKELETAL: There was no tenderness or effusions noted. Muscle strength and tone were normal. EXTREMITIES: No cyanosis, clubbing or edema. NEUROLOGIC: Alert and oriented x 3. Answers questions pulling from multiple time points, but generally appropriate responses. Moves all extremities equally and ambulated from commode to bed without assistance. Objective Labs Result Diagrams: 11/22/19 04:50 11/22/19 04:50 Labs: Laboratory Results - last 24 hr 11/21/19 11/21/19 11/21/19 15:23 15:23 15:23 WBC 9.4 RBC 4.17 Hgb 13.3 Hct 38.9 MCV 93.3 MCH 31.8 MCHC 34.1 RDW 12.6 Plt Count 320 Neut % (Auto) 79.5 H Lymph % (Auto) 15.6 L [place] % (Auto) 4.1 Eos % (Auto) 0.5 L Baso % (Auto) 0.3 Neut # (Auto) 7500 H Lymph # (Auto) 1500 [place] # (Auto) 400 Eos # (Auto) 0 Baso # (Auto) 0 PT 11.7 INR 1.0 APTT 31 ABG pH ABG pCO2 ABG pO2 ABG HCO3 ABG Total CO2 ABG O2 Saturation ABG Base Excess FiO2 Sodium Potassium Chloride Carbon Dioxide BUN Creatinine Estimated GFR BUN/Creatinine Ratio Glucose Lactate Calcium Magnesium 2.1 Total Bilirubin Conjugated Bilirubin Unconjugated Bilirubin AST ALT Alkaline Phosphatase Total Creatine Kinase 35 CK-MB (CK-2) TNP CK-MB (CK-2) Rel Index TNP Troponin I < 0.012 Total Protein Albumin Globulin Albumin/Globulin Ratio Procalcitonin TSH Free T4 Urine Color Urine Appearance Urine pH Ur Specific [place] Urine Protein Urine Glucose (UA) Urine Ketones Urine Occult Blood Urine Nitrate Urine Bilirubin Urine Urobilinogen Ur Leukocyte Esterase Urine RBC Urine WBC Urine Bacteria Ur Culture Indicated? Nasal Screen MRSA (PCR) Chlamy pneumoniae PCR Adenovirus (PCR) B.parapertussis DNA PCR Coronavirus OC43 (PCR) Coronavirus HKU1 (PCR) Coronavirus 229E (PCR) Coronavirus NL63 (PCR) Human Metapneumovir PCR Influenza Type A (PCR) Influenza Type B (PCR) M. pneumoniae (PCR) Parainfluenza 1 (PCR) Parainfluenza 2 (PCR) Parainfluenza 3 (PCR) Parainfluenza 4 (PCR) RSV (PCR) Entero/Rhino (PCR) 11/21/19 11/21/19 11/21/19 15:23 15:23 15:23 WBC RBC Hgb Hct MCV MCH MCHC RDW Plt Count Neut % (Auto) Lymph % (Auto) [place] % (Auto) Eos % (Auto) Baso % (Auto) Neut # (Auto) Lymph # (Auto) [place] # (Auto) Eos # (Auto) Baso # (Auto) PT INR APTT ABG pH ABG pCO2 ABG pO2 ABG HCO3 ABG Total CO2 ABG O2 Saturation ABG Base Excess FiO2 Sodium 139 Potassium 4.3 Chloride 96 L Carbon Dioxide 37 H BUN 11 Creatinine 0.60 Estimated GFR > 60.0 BUN/Creatinine Ratio 18.3 Glucose 136 H Lactate 0.6 L Calcium 9.8 Magnesium Total Bilirubin 0.4 Conjugated Bilirubin Unconjugated Bilirubin AST 31 ALT 20 Alkaline Phosphatase 70 Total Creatine Kinase CK-MB (CK-2) CK-MB (CK-2) Rel Index Troponin I Total Protein 7.6 Albumin 4.5 Globulin 3.1 Albumin/Globulin Ratio 1.5 Procalcitonin < 0.05 TSH Free T4 Urine Color Urine Appearance Urine pH Ur Specific [place] Urine Protein Urine Glucose (UA) Urine Ketones Urine Occult Blood Urine Nitrate Urine Bilirubin Urine Urobilinogen Ur Leukocyte Esterase Urine RBC Urine WBC Urine Bacteria Ur Culture Indicated? Nasal Screen MRSA (PCR) Chlamy pneumoniae PCR Adenovirus (PCR) B.parapertussis DNA PCR Coronavirus OC43 (PCR) Coronavirus HKU1 (PCR) Coronavirus 229E (PCR) Coronavirus NL63 (PCR) Human Metapneumovir PCR Influenza Type A (PCR) Influenza Type B (PCR) M. pneumoniae (PCR) Parainfluenza 1 (PCR) Parainfluenza 2 (PCR) Parainfluenza 3 (PCR) Parainfluenza 4 (PCR) RSV (PCR) Entero/Rhino (PCR) 11/21/19 11/21/19 11/21/19 15:23 15:24 15:42 WBC RBC Hgb Hct MCV MCH MCHC RDW Plt Count Neut % (Auto) Lymph % (Auto) [place] % (Auto) Eos % (Auto) Baso % (Auto) Neut # (Auto) Lymph # (Auto) [place] # (Auto) Eos # (Auto) Baso # (Auto) PT INR APTT ABG pH 7.38 ABG pCO2 63.2 H* ABG pO2 76 L ABG HCO3 38 H ABG Total CO2 40 H ABG O2 Saturation 94 L ABG Base Excess 13.0 H FiO2 28 Sodium Potassium Chloride Carbon Dioxide BUN Creatinine Estimated GFR BUN/Creatinine Ratio Glucose Lactate Calcium Magnesium Total Bilirubin Conjugated Bilirubin Unconjugated Bilirubin AST ALT Alkaline Phosphatase Total Creatine Kinase CK-MB (CK-2) CK-MB (CK-2) Rel Index Troponin I Total Protein Albumin Globulin Albumin/Globulin Ratio Procalcitonin TSH Free T4 Urine Color Yellow Urine Appearance Clear Urine pH 7.0 Ur Specific [place] 1.015 Urine Protein Negative Urine Glucose (UA) Negative Urine Ketones Negative Urine Occult Blood Negative Urine Nitrate Negative Urine Bilirubin Negative Urine Urobilinogen 0.2 Ur Leukocyte Esterase Negative Urine RBC None seen Urine WBC 0-1/hpf Urine Bacteria None seen Ur Culture Indicated? Cult not indicated Nasal Screen MRSA (PCR) Chlamy pneumoniae PCR Not detected Adenovirus (PCR) Not detected B.parapertussis DNA PCR Not detected Coronavirus OC43 (PCR) Not detected Coronavirus HKU1 (PCR) Not detected Coronavirus 229E (PCR) Not detected Coronavirus NL63 (PCR) Not detected Human Metapneumovir PCR Not detected Influenza Type A (PCR) Not detected Influenza Type B (PCR) Not detected M. pneumoniae (PCR) Not detected Parainfluenza 1 (PCR) Not detected Parainfluenza 2 (PCR) Not detected Parainfluenza 3 (PCR) Not detected Parainfluenza 4 (PCR) Not detected RSV (PCR) Not detected Entero/Rhino (PCR) Not detected 11/21/19 11/22/19 11/22/19 18:10 04:50 04:50 WBC 9.9 RBC 3.79 L Hgb 11.8 L Hct 35.3 L MCV 92.9 MCH 31.1 MCHC 33.5 RDW 12.7 Plt Count 280 Neut % (Auto) 86.8 H Lymph % (Auto) 10.0 L [place] % (Auto) 2.8 L Eos % (Auto) 0.0 L Baso % (Auto) 0.4 Neut # (Auto) 8600 H Lymph # (Auto) 1000 L [place] # (Auto) 300 Eos # (Auto) 0 Baso # (Auto) 0 PT INR APTT ABG pH ABG pCO2 ABG pO2 ABG HCO3 ABG Total CO2 ABG O2 Saturation ABG Base Excess FiO2 Sodium 138 Potassium 4.9 Chloride 97 L Carbon Dioxide 36 H BUN 16 Creatinine 0.60 Estimated GFR > 60.0 BUN/Creatinine Ratio 26.7 H Glucose 129 H Lactate Calcium 9.3 Magnesium 2.4 H Total Bilirubin 0.2 Conjugated Bilirubin 0.0 Unconjugated Bilirubin 0.2 AST 23 ALT 17 Alkaline Phosphatase 51 Total Creatine Kinase CK-MB (CK-2) CK-MB (CK-2) Rel Index Troponin I Total Protein 6.8 Albumin 4.0 Globulin 2.8 Albumin/Globulin Ratio 1.4 Procalcitonin TSH Free T4 Urine Color Urine Appearance Urine pH Ur Specific [place] Urine Protein Urine Glucose (UA) Urine Ketones Urine Occult Blood Urine Nitrate Urine Bilirubin Urine Urobilinogen Ur Leukocyte Esterase Urine RBC Urine WBC Urine Bacteria Ur Culture Indicated? Nasal Screen MRSA (PCR) Negative for mrsa Chlamy pneumoniae PCR Adenovirus (PCR) B.parapertussis DNA PCR Coronavirus OC43 (PCR) Coronavirus HKU1 (PCR) Coronavirus 229E (PCR) Coronavirus NL63 (PCR) Human Metapneumovir PCR Influenza Type A (PCR) Influenza Type B (PCR) M. pneumoniae (PCR) Parainfluenza 1 (PCR) Parainfluenza 2 (PCR) Parainfluenza 3 (PCR) Parainfluenza 4 (PCR) RSV (PCR) Entero/Rhino (PCR) 11/22/19 04:50 WBC RBC Hgb Hct MCV MCH MCHC RDW Plt Count Neut % (Auto) Lymph % (Auto) [place] % (Auto) Eos % (Auto) Baso % (Auto) Neut # (Auto) Lymph # (Auto) [place] # (Auto) Eos # (Auto) Baso # (Auto) PT INR APTT ABG pH ABG pCO2 ABG pO2 ABG HCO3 ABG Total CO2 ABG O2 Saturation ABG Base Excess FiO2 Sodium Potassium Chloride Carbon Dioxide BUN Creatinine Estimated GFR BUN/Creatinine Ratio Glucose Lactate Calcium Magnesium Total Bilirubin Conjugated Bilirubin Unconjugated Bilirubin AST ALT Alkaline Phosphatase Total Creatine Kinase CK-MB (CK-2) CK-MB (CK-2) Rel Index Troponin I Total Protein Albumin Globulin Albumin/Globulin Ratio Procalcitonin TSH 0.46 L Free T4 0.91 Urine Color Urine Appearance Urine pH Ur Specific [place] Urine Protein Urine Glucose (UA) Urine Ketones Urine Occult Blood Urine Nitrate Urine Bilirubin Urine Urobilinogen Ur Leukocyte Esterase Urine RBC Urine WBC Urine Bacteria Ur Culture Indicated? Nasal Screen MRSA (PCR) Chlamy pneumoniae PCR Adenovirus (PCR) B.parapertussis DNA PCR Coronavirus OC43 (PCR) Coronavirus HKU1 (PCR) Coronavirus 229E (PCR) Coronavirus NL63 (PCR) Human Metapneumovir PCR Influenza Type A (PCR) Influenza Type B (PCR) M. pneumoniae (PCR) Parainfluenza 1 (PCR) Parainfluenza 2 (PCR) Parainfluenza 3 (PCR) Parainfluenza 4 (PCR) RSV (PCR) Entero/Rhino (PCR) Discharge Plan Discharge Plan Patient Disposition: Home Health Service Discharge comment: You were admitted to the hospital with a possible COPD exacerbation and responded quickly to steroids. You improved to close to your baseline. Respiratory therapy will help to work on changing the settings on your home trilogy machine. Discharge orders & Medications Prescriptions: New prednisone 20 mg Tablet 40 mg PO DAILY 4 Days Qty: 8 RF: 0 Continued Ensure High Protein liquid 1 each PO 5XD Qty: 20427 RF: 11 albuterol sulfate [Ventolin HFA] 90 mcg/actuation HFA aerosol inhaler 2 puff inhalation Q4-6H PRN (Reason: shortness of breath or wheezing) Qty: 8 RF: 11 ipratropium-albuterol 0.5 mg-3 mg(2.5 mg base)/3 mL solution for nebulization 3 ml INHALATION Q6H PRN (Reason: shortness of breath or wheezing) Qty: 360 RF: 12 Disabled Parking Permit See Rx Instructions .ROUTE .COMPLEX Qty: 1 RF: 0 azithromycin 250 mg tablet 250 mg PO DAILY Qty: 30 RF: 11 trazodone 50 mg tablet 150 mg PO HS PRN (Reason: insomnia) Qty: 90 RF: 11 Dulera 200-5 mcg/actuation HFA aerosol inhaler 2 puff inhalation BID Qty: 13 RF: 11 alprazolam 0.25 mg tablet 0.25 mg PO BID Qty: 30 RF: 2 (DME) portable oxygen system Qty: 1 RF: 0 melatonin 1 tab PO BEDTIME RF: 0 acetaminophen [Tylenol] 325 mg Tablet 325 mg PO PRN PRN (Reason: pain) RF: 0 ibuprofen 200 mg Tablet 200 mg PO PRN PRN (Reason: pain) RF: 0 Follow up/Referrals: Kathie Dubois ARNP [[employer]] - (Clinic will call patient to schedule follow up appt ) Vikas Mercedes MD [Primary Care Provider] - As previously scheduled (Dr. Mercedes' office will call you with an appointment. If you have not heard back from them within 48 hours, please call the office at [phone] to follow up. ) Diet/Activity/Treatments Diet: Diet as Tolerated Activity: As tolerated Visit Report/Discharge Packet Instructions: DI for Chronic Obstructive Pulmonary Disease, Smoking and Smoking Cessation in Relation to Mortality in Women, Prednisone (By mouth) Discharge Data Primary Care Provider: Vikas Mercedes Attending Provider: Brenden Garcia Admit Date/Time: 11/21/19 16:54 Discharges patient from system. Discharge Date/Time: 11/22/19 15:45
--- NOTE | 2019-11-22 13:03 | OT.IP.TRT ---
Occupational Therapy Treatment Note M3 OT- IP Subjective and Pain Start: 11/22/19 12:59 Freq: Status: Active Protocol: Document 11/22/19 12:59 [facility] (Rec: 11/22/19 13:03 [facility] [id number]) OT- Subjective Occupational Therapy Visit Type Type Treatment Note Visit Start Time 12:47 Visit Stop Time 12:56 Total Visit Minutes 9 Occupational Therapy Visit Comments Patient Comments Pt taking a nap and willing to talk to OT, however too tired to try to take a shower at this time. Pt states has a supportive significant other that is able to assist her for all needs at home and main barriers for her has been shortness of breath and feeling tired. Gave pt handouts for shortness of breath and energy conservation techniques and went over information with pt. Per pt looking to be discharged today . If still here tomorrow, to do OT eval. Patient/Caregiver Goals To go home.
[2019-11-22] MEDS: ALBUTEROL 2.5 MG/3 ML NEB (ADULT) INH (13:27)
--- NOTE | 2019-11-22 15:13 | PC.NURSE ---
Provided d/c packet and educational materials. Pt and s/o present for d/c teaching. Reviewed medication regimen, home o2 needs, smoking cessation, activity, diet, and need for f/u. Instructed pt to call Dr. eMrcedes' office re f/u appt if they have not heard back within a couple of days. Provided PCP office number. Instructed pt and s/o to parts picker rx at [facility] prior to going home. Provided teaching on rx. Both pt and spouse verbalize understanding. Removed PIV x2 with cath tip intact. S/o is concerned about current trilogy settings. Would like RT to coordinate with [facility] [place] regarding this. RT has been in contact with [facility] [place] today about pt concerns and facilitating setting changes with trilogy.
--- NOTE | 2019-11-22 15:55 | PC.NURSE ---
Pt discharged by prior shift RN, all paperwork completed prior. RT at bedside working with Trilogy plan for home- per report from him- all is complete and pt and significant other. Whelled down by RN to car.
== END 2019-11-22 15:45 | disposition home health service (06) ==
LOC: ED 15:08 → ICU 17:45 → AC 11-22 14:22
PROVIDERS: Admitting Provider Internal Medicine; Emergency Provider Nurse Practitioner Family; PCP Internal Medicine; Referring Provider Nurse Practitioner Family; Visit Provider Internal Medicine
DX: J96.22 Acute and chronic respiratory failure with hypercapnia (principal); J96.21 Acute and chronic respiratory failure with hypoxia; J44.1 Chronic obstructive pulmonary disease with (acute) exacerbation; Z72.0 Tobacco use; Z99.81 Dependence on supplemental oxygen; F41.9 Anxiety disorder, unspecified; Z87.19 Personal history of other diseases of the digestive system; R63.0 Anorexia; R64 Cachexia
CPT/HCPCS: 36415; 36600; 71045; 80048; 80053; 80061; 80076; 81001; 82550; 82805; 83605; 83735; 84145; 84439; 84443; 84484; 85025; 85610; 85730; 87040; 87070; 87077; 87186; 87205; 87633; 87797; 93005; 93010; 94618; 94640; 94660; 94760; 94762; 96361; 96374; 96375; 97162; 97530; 99285; 99291; G0378; J1650; J2060; J2930; J7613

== ENCOUNTER 2020-01-08 13:45 | Emergency (ER) | payer OTHER, MEDICAID, SELFPAY ==
[2019-11-21 20:59] VITALS: BMI 17.9
[2019-11-22 13:41] VITALS: PULSE 115; RESP 16; O2SAT 90
--- NOTE | 2020-01-08 13:51 | DI.RAD.S_ITS ---
PROCEDURE: XR CHEST 1V INDICATIONS: soa/cough/fever TECHNIQUE: One view of the chest was acquired. COMPARISON: [facility], [facility], XR CHEST 1V, 11/21/2019, 16:04. FINDINGS: Surgical changes and devices: None. Lungs and pleura: Lungs are clear. No pleural effusions or pneumothorax. Mediastinum: Mediastinal contours appear normal. Heart size is normal. Bones and chest wall: No suspicious bony lesions. Overlying soft tissues appear unremarkable. IMPRESSION: No acute cardiopulmonary pathology. Dictated by: Donny Parsons M.D. on 01/08/2020 at 14:29 Approved by: Donny Parsons M.D. on 01/08/2020 at 14:29
[2020-01-08 13:53] VITALS: BP 138/70; PULSE 122; RESP 24; TEMP 37.3; O2SAT 94
--- NOTE | 2020-01-08 13:54 | ED_ITS ---
HPI - General Adult General Chief complaint: Shortness of Breath/Dyspnea Stated complaint: COPD,COUGHING UP YELLOW Time Seen by Provider: 01/08/20 13:54 History of Present Illness HPI narrative: 64-year-old former smoker with a long history of COPD with chronic bronchitis presents with increasing sputum and changed color of the sputum. Over the last 8 years she has had multiple episodes of recurrent bronchitis, hospitalizations and pulmonary consult. At this point she is on a stable regimen of DuoNeb nebulizers 4 times a day, albuterol nebulizer as needed in addition, Dulera twice a day, and daily to 250 mg of azithromycin. Over the last number of years with her chronic bronchitis exacerbations she does well with increasing the azithromycin to 500 mg and occasionally will need longer courses, typically 10-15 days and once as long as 20 days. They have had multiple issues with antibiotics in the past. She is allergic to penicillins and cephalosporins and with multiple courses of doxycycline has never improved. They frequently have difficulty with her insurance in authorizing longer extended courses of 500 mg of azithromycin daily Over the last number of days she has noticed increasing sputum, darker coloration with some blood tinge to it. She was seen by her primary care physician on Wednesday and doxycycline was added as well as steroids started. Over the course of the weekend there was little change and then this morning she noticed increasing weakness low-grade temperatures up to 101 and darkening sputum. There is no chest pain, no vomiting, diarrhea, she remains stable on 2 L of home oxygen as is her baseline, no lower extremity edema, no headaches, no abdominal pain. Related Data Home Medications Medication Instructions Recorded Confirmed acetaminophen [Tylenol] 325 mg PO PRN PRN 11/21/19 11/29/19 ibuprofen 200 mg PO PRN PRN 11/21/19 11/29/19 melatonin 1 tab PO BEDTIME 11/21/19 11/29/19 nicotine (polacrilex) 4 mg gum 4 mg BUCCAL Q2H 11/29/19 11/29/19 Previous Rx's Medication Instructions Recorded Disabled Parking Permit See Rx Instructions .ROUTE 03/20/19 .COMPLEX #1 unit azithromycin 250 mg tablet 250 mg PO DAILY #30 tab 03/20/19 food supplemt, lactose-reduced 1 each PO 5XD #06431 ml 03/20/19 trazodone 50 mg tablet 150 mg PO HS PRN #90 tab 03/20/19 alprazolam 0.25 mg tablet 0.25 mg PO BID #30 tab 10/23/19 mometasone-formoterol HFA 200 2 puff INHALATION BID #13 gram 10/23/19 mcg-5 mcg/actuation aerosol inhaler portable oxygen system #1 ea 10/23/19 ipratropium 0.5 mg-albuterol 3 mg 3 ml INHALATION Q6H PRN #360 ml 10/27/19 (2.5 mg base)/3 mL nebulization soln Ventolin HFA 90 mcg/actuation 2 puff INHALATION Q4-6H PRN #8 12/15/19 aerosol inhaler gram NS doxycycline hyclate 100 mg tablet 100 mg PO BID #20 tab 01/05/20 prednisone 20 mg tablet 40 mg PO DAILY 7 Days #14 tab 01/05/20 azithromycin 500 mg PO DAILY 15 Days #15 tab 01/08/20 Allergies Allergy/AdvReac Type Severity Reaction Status Date / Time cephalexin Allergy Severe Anaphalaxis Verified 11/29/19 13:54 Penicillins AdvReac Mild DIARRHEA Verified 11/29/19 13:54 Review of Systems Review of Systems Narrative: All systems reviewed and are unremarkable except as noted in HPI and below Patient History Medical History Abnormal chest x-ray (Chronic) Acne (Chronic) Anxiety (Chronic ~2008) Carpal tunnel syndrome (Chronic ~1982) Chicken pox (Resolved ~1962) Chronic back pain (Chronic ~1967) Chronic cough (Chronic) Colitis (Chronic) COPD (chronic obstructive pulmonary disease) (Chronic) Crohn's disease (Chronic) Fecal incontinence (Chronic ~1981) Fractures (Resolved ~1962) GERD (gastroesophageal reflux disease) (Chronic) Headache (Chronic) Heavy menstrual period (Inactive) History of urinary incontinence (Chronic ~2014) Irregular menstrual cycle (Inactive ~1976) Irritable bowel syndrome (Chronic) Measles (Resolved ~1962) Mumps (Resolved) Neck pain (Chronic) Osteoarthritis (Chronic) Osteoporosis (Chronic) Plantar warts (Chronic) Shoulder pain (Chronic ~2013) TIA (transient ischemic attack) (Chronic ~2014) Surgical History Colon polyps (Resolved) History of appendectomy (Resolved) History of tonsillectomy (Resolved) Family History Mother Breast cancer Grandfather No problems noted. Grandmother Cancer Grandfather Cancer Social History household members: significant other Smoking Status: Former smoker (Quit 11/21/19 ) Tobacco: How many years used: 44 quit status: considering quitting alcohol intake: never Smoking Status: Former smoker (Quit 11/21/19 ) alcohol intake frequency: 0-2 drinks per day Substance Use Type: does not use Exam Narrative Exam Narrative: General: quite thin, no acute distress. Able to speak in full sentences HEENT: Moist mucous membranes, normal sclera with reactive pupils, Neck: No JVD, supple Respiratory: Lungs scattered wheezing mild, all lung richardson. No rales no rhonchi. Full and symmetrical air movement Cardiac: Regular rate and rhythm no murmurs no bruits Abdomen: Soft nontender good bowel tones, no flank pain Skin: Warm and dry, no rashes Neurologic: Grossly neurologically intact with no obvious asymmetries or abnormalities Extremities: No trauma, well perfused Psych: Cooperative, appropriate insight and affect Initial Vital Signs Initial Vital Signs: Vital Signs Temperature 99.2 F 01/08/20 13:53 Pulse Rate 122 H 01/08/20 13:53 Respiratory Rate 24 01/08/20 13:53 Blood Pressure 138/70 01/08/20 13:53 Pulse Oximetry 94 01/08/20 13:53 Course Orders Ordered: Discontinued Medications Azithromycin 500 mg/ Dextrose 250 mls @ 250 mls/hr IV NOW ONE Stop: 01/08/20 15:12 Last Infusion: 01/08/20 16:46 Dose: 0 mls/hr Documented by: Admin: 01/08/20 15:38 Dose: 250 mls/hr Documented by: ALEXIA Sodium Chloride (Normal Saline 0.9%) 1,000 mls @ 1,000 mls/hr IV BOLUS ONE Stop: 01/08/20 16:10 Last Infusion: 01/08/20 17:08 Dose: 0 mls/hr Documented by: Admin: 01/08/20 15:38 Dose: 1,000 mls/hr Documented by: ALEXIA Ketorolac Tromethamine (Toradol) 15 mg IV NOW ONE Stop: 01/08/20 16:30 Last Admin: 01/08/20 16:32 Dose: 15 mg Documented by: TAMI Methylprednisolone (Solu-Medrol 125 Mg Vial) 60 mg IV NOW ONE Stop: 01/08/20 15:12 Last Admin: 01/08/20 15:38 Dose: 60 mg Documented by: ALEXIA Ondansetron HCl (Zofran) 4 mg IV NOW ONE Stop: 01/08/20 16:30 Last Admin: 01/08/20 16:33 Dose: 4 mg Documented by: TAMI Vital Signs Vital signs: Vital Signs - 8 hr 01/08/20 13:53 01/08/20 15:00 01/08/20 15:30 Temperature 99.2 F Pulse Rate 122 H 101 H 95 H Respiratory Rate 24 20 19 Blood Pressure 138/70 Blood Pressure [Left Arm] 136/80 122/66 Pulse Oximetry 94 98 99 01/08/20 16:00 Temperature Pulse Rate 99 H Respiratory Rate 23 Blood Pressure Blood Pressure [Left Arm] 124/74 Pulse Oximetry 100 Medical Decision Making Medical Records Medical records reviewed: Yes I reviewed the patient's medical records. Lab Data Lab results reviewed: Yes I reviewed the patient's lab results. Result diagrams: 01/08/20 14:03 01/08/20 14:03 Labs: Lab Results 01/08/20 01/08/20 01/08/20 Range/Units 14:03 14:03 14:03 WBC 11.2 H (4.5-11.0) X10^3/uL RBC 3.89 L (4.0-5.2) X10^6/uL Hgb 12.1 (12.0-16.0) g/dL Hct 36.5 (36-46) % MCV 94.0 (80-100) fL MCH 31.0 (26-34) PG MCHC 33.0 (30-36) % RDW 12.6 (11.6-14.8) % Plt Count 315 (150-400) X10^3/uL Neut % (Auto) 68.3 (50-75) % Lymph % (Auto) 23.1 L (25-40) % [place] % (Auto) 6.9 (3-14) % Eos % (Auto) 1.4 L (2-4) % Baso % (Auto) 0.3 (0-2) % Neut # (Auto) 7700 H (6437-0845) /uL Lymph # (Auto) 2600 (6787-8056) /uL [place] # (Auto) 800 (0-900) /uL Eos # (Auto) 200 (0-450) /uL Baso # (Auto) 0 (0-100) /uL Sodium 139 (137-145) mmol/L Potassium 3.6 (3.4-5.1) mmol/L Chloride 99 (98-107) mmol/L Carbon Dioxide 32 (22-32) mmol/L BUN 15 (7-17) mg/dL Creatinine 0.63 (0.52-1.04) mg/dL Estimated GFR > 60.0 (>60) mL/min BUN/Creatinine Ratio 23.8 H (6-22) Glucose 136 H (80-110) mg/dL Lactate (0.7-2.1) mmol/L Calcium 9.6 (8.4-10.2) mg/dL Total Bilirubin 0.3 (0.2-1.3) mg/dL AST 22 (14-36) IU/L ALT 17 (<35) IU/L Alkaline Phosphatase 53 (38-126) U/L Total Protein 7.2 (6.3-8.2) g/dL Albumin 4.1 (3.5-5.0) g/dL Globulin 3.1 (1.7-4.1) g/dL Albumin/Globulin Ratio 1.3 (1.0-2.8) Procalcitonin < 0.05 (<0.5) ng/mL Chlamy pneumoniae PCR (Not Detect) Adenovirus (PCR) (Not Detect) B.parapertussis DNA PCR (Not Detect) Coronavirus OC43 (PCR) (Not Detect) Coronavirus HKU1 (PCR) (Not Detect) Coronavirus 229E (PCR) (Not Detect) Coronavirus NL63 (PCR) (Not Detect) Human Metapneumovir PCR (Not Detect) Influenza Type A (PCR) (Not Detect) Influenza Type B (PCR) (Not Detect) M. pneumoniae (PCR) (Not Detect) Parainfluenza 1 (PCR) (Not Detect) Parainfluenza 2 (PCR) (Not Detect) Parainfluenza 3 (PCR) (Not Detect) Parainfluenza 4 (PCR) (Not Detect) RSV (PCR) (Not Detect) Entero/Rhino (PCR) (Not Detect) 01/08/20 01/08/20 Range/Units 14:03 14:18 WBC (4.5-11.0) X10^3/uL RBC (4.0-5.2) X10^6/uL Hgb (12.0-16.0) g/dL Hct (36-46) % MCV (80-100) fL MCH (26-34) PG MCHC (30-36) % RDW (11.6-14.8) % Plt Count (150-400) X10^3/uL Neut % (Auto) (50-75) % Lymph % (Auto) (25-40) % [place] % (Auto) (3-14) % Eos % (Auto) (2-4) % Baso % (Auto) (0-2) % Neut # (Auto) (9548-5785) /uL Lymph # (Auto) (0843-7982) /uL [place] # (Auto) (0-900) /uL Eos # (Auto) (0-450) /uL Baso # (Auto) (0-100) /uL Sodium (137-145) mmol/L Potassium (3.4-5.1) mmol/L Chloride (98-107) mmol/L Carbon Dioxide (22-32) mmol/L BUN (7-17) mg/dL Creatinine (0.52-1.04) mg/dL Estimated GFR (>60) mL/min BUN/Creatinine Ratio (6-22) Glucose (80-110) mg/dL Lactate 1.8 (0.7-2.1) mmol/L Calcium (8.4-10.2) mg/dL Total Bilirubin (0.2-1.3) mg/dL AST (14-36) IU/L ALT (<35) IU/L Alkaline Phosphatase (38-126) U/L Total Protein (6.3-8.2) g/dL Albumin (3.5-5.0) g/dL Globulin (1.7-4.1) g/dL Albumin/Globulin Ratio (1.0-2.8) Procalcitonin (<0.5) ng/mL Chlamy pneumoniae PCR Not detected (Not Detect) Adenovirus (PCR) Not detected (Not Detect) B.parapertussis DNA PCR Not detected (Not Detect) Coronavirus OC43 (PCR) Not detected (Not Detect) Coronavirus HKU1 (PCR) Not detected (Not Detect) Coronavirus 229E (PCR) Not detected (Not Detect) Coronavirus NL63 (PCR) Not detected (Not Detect) Human Metapneumovir PCR Not detected (Not Detect) Influenza Type A (PCR) Not detected (Not Detect) Influenza Type B (PCR) Not detected (Not Detect) M. pneumoniae (PCR) Not detected (Not Detect) Parainfluenza 1 (PCR) Not detected (Not Detect) Parainfluenza 2 (PCR) Not detected (Not Detect) Parainfluenza 3 (PCR) Not detected (Not Detect) Parainfluenza 4 (PCR) Not detected (Not Detect) RSV (PCR) Not detected (Not Detect) Entero/Rhino (PCR) Not detected (Not Detect) Imaging Data Chest x-ray: Radiologist's Impression: IMPRESSION: No acute cardiopulmonary pathology. Dictated by: Donny Parsons M.D. on 01/08/2020 at 14:29 MDM Narrative Medical decision making narrative: 64-year-old woman with chronic bronchitis and COPD. Worsening sputum color with hemoptysis. In the past has done well with extended courses of higher doses of azithromycin. NOt currently septic, stable on current 02 levels, safe for home discharge. Spoke with [facility] pharmacist after electronic transmission. Prior auth required due to plan limits. Call to prior auth [phone], azithromycin 500mg daily, 15 days. Approved, [place] number #[id number] Discharge Plan Departure Patient Disposition: Home Clinical Impression: Acute exacerbation of chronic obstructive pulmonary disease (COPD), Chronic bronchitis with acute exacerbation Discharge Date/Time: 01/08/20 17:14 Instructions: DI for Chronic Obstructive Pulmonary Disease Activity Restrictions/Additional Instructions: Thank you for coming in today Your blood work, clinical exam and chest x-ray also suggests that this is an acute exacerbation of your chronic bronchitis as well as her COPD. As you mentioned, longer doses of 500 mg of azithromycin seem to work best and doxycycline has been ineffective previously. At this time, you do not need to be admitted to the hospital. I do want you to complete the course of steroids that you started on Wednesday. I also I am going to suggest 15 days of 500 mg of azithromycin. I have contacted [facility] pharmacy and have filled out prior authorization for this. If you have any difficulties the prior authorization number is: number #[id number] Once you have completed 15 days at this higher dose, please return to your daily 250 mg dose Please follow-up with Dr. Nixon as previously scheduled If you feel that you are getting worse, developing more difficulty breathing, needing your nebulizers more frequently, finding that your usual oxygen supplementation is no longer adequate, developed worsening fevers or have other new or concerning symptoms, please return to the emergency room for further evaluation Prescriptions: New azithromycin 500 mg tablet 500 mg PO DAILY 15 Days Qty: 15 RF: 0 No Action Ensure High Protein liquid 1 each PO 5XD Qty: [id number] RF: 11 ipratropium-albuterol 0.5 mg-3 mg(2.5 mg base)/3 mL solution for nebulization 3 ml INHALATION Q6H PRN (Reason: shortness of breath or wheezing) Qty: 360 RF: 12 albuterol sulfate [Ventolin HFA] 90 mcg/actuation HFA aerosol inhaler 2 puff inhalation Q4-6H PRN (Reason: shortness of breath or wheezing) Qty: 8 RF: 11 prednisone 20 mg tablet 40 mg PO DAILY 7 Days Qty: 14 RF: 0 doxycycline hyclate 100 mg tablet 100 mg PO BID Qty: 20 RF: 0 Disabled Parking Permit See Rx Instructions .ROUTE .COMPLEX Qty: 1 RF: 0 azithromycin 250 mg tablet 250 mg PO DAILY Qty: 30 RF: 11 trazodone 50 mg tablet 150 mg PO HS PRN (Reason: insomnia) Qty: 90 RF: 11 Dulera 200-5 mcg/actuation HFA aerosol inhaler 2 puff inhalation BID Qty: 13 RF: 11 alprazolam 0.25 mg tablet 0.25 mg PO BID Qty: 30 RF: 2 (DME) portable oxygen system Qty: 1 RF: 0 nicotine (polacrilex) 4 mg gum 4 mg BUCCAL Q2H RF: 0 melatonin 1 tab PO BEDTIME RF: 0 acetaminophen [Tylenol] 325 mg Tablet 325 mg PO PRN PRN (Reason: pain) RF: 0 ibuprofen 200 mg Tablet 200 mg PO PRN PRN (Reason: pain) RF: 0 Referrals: Fer Nixon DO [Primary Care Provider] -
[2020-01-08 14:11] LABS: Add Manual Diff / Slide Review NO; Basophils Absolute Auto 0 /uL (0-100); Basophils Percent Auto 0.3 % (0-2); Eosinophils Absolute Auto 200 /uL (0-450); Eosinophils Percent Auto 1.4 % (2-4); Hematocrit 36.5 % (36-46); Hemoglobin 12.1 g/dL (12.0-16.0); Lymphocytes Absolute Auto 2600 /uL (1100-4500); Lymphocytes Percent Auto 23.1 % (25-40); Monocytes Absolute Auto 800 /uL (0-900); Monocytes Percent Auto 6.9 % (3-14); Neutrophils Absolute Auto 7700 /uL (1500-7000); Neutrophils Percent Auto 68.3 % (50-75); Platelet Count 315 X10^3/uL (150-400); Red Blood Cell Count 3.89 X10^6/uL (4.0-5.2); Red Cell Distribution Width 12.6 % (11.6-14.8); White Blood Cell Count 11.2 X10^3/uL (4.5-11.0)
[2020-01-08 14:28] LABS: Lactate (Lactic Acid) 1.8 mmol/L (0.7-2.1)
[2020-01-08 14:29] LABS: Alanine Aminotransferase 17 IU/L (<35); Albumin 4.1 g/dL (3.5-5.0); Albumin Globulin Ratio 1.3 (1.0-2.8); Alkaline Phosphatase 53 U/L (38-126); Aspartate Aminotransferase 22 IU/L (14-36); BUN Creatinine Ratio 23.8 (6-22); Bilirubin Total 0.3 mg/dL (0.2-1.3); Blood Urea Nitrogen 15 mg/dL (7-17); Calcium 9.6 mg/dL (8.4-10.2); Carbon Dioxide 32 mmol/L (22-32); Chloride 99 mmol/L (98-107); Estimated Glomerular Filt Rate > 60.0 mL/min (>60); Globulin 3.1 g/dL (1.7-4.1); Glucose 136 mg/dL (80-110); HEMOLYSIS < 15 (0-50); Potassium 3.6 mmol/L (3.4-5.1); Sodium 139 mmol/L (137-145); Total Protein 7.2 g/dL (6.3-8.2)
[2020-01-08 14:50] LABS: Procalcitonin < 0.05 ng/mL (<0.5)
[2020-01-08 15:00] VITALS: BP 136/80; PULSE 101; RESP 20; O2SAT 98
[2020-01-08 15:30] VITALS: BP 122/66; PULSE 95; RESP 19; O2SAT 99
[2020-01-08] MEDS: SODIUM CHLORIDE 0.9% 1,000 ML 1000 ML IV (15:38)
[2020-01-08] MEDS: methylPREDNISolone 125 MG/2 ML VIAL 60 MG IV (15:38)
[2020-01-08] MEDS: AZITHROMYCIN 500 MG in DEXTROSE 5% IN WATER 250 ML IV (15:38)
[2020-01-08 16:00] VITALS: BP 124/74; PULSE 99; RESP 23; O2SAT 100
[2020-01-08] MEDS: KETOROLAC 60 MG/2 ML VIAL 15 MG IV (16:32)
[2020-01-08] MEDS: ONDANSETRON 4 MG/2 ML INJ IV (16:33)
--- NOTE | 2020-01-08 17:08 | PC.NURSE ---
Patient repeatedly comes out of room to have staff get things for patient. Patient and reminded of call button. This RN assist pt to restroom and informed that pt still had a few minutes left of saline bag. states that he needs to go and get her her medication. I informed him that her paperwork was not printed yet and they might as well finish her medication. became visibly upset and states they need to leave and get her medications right now. This RN assisted pt to rest room and by the time we got back paperwork was done. Denis RENDON and this RN assist pt and spouse to leave ED in no acute distress.
[2020-01-08 17:10] VITALS: BP 124/74; PULSE 99; RESP 16; O2SAT 100
[2020-01-08 17:32] LABS: Adenovirus Not Detected (Not Detect); Bordetella pertussis Not Detected (Not Detect); Chlamydophila pneumoniae Not Detected (Not Detect); Coronavirus 229E Not Detected (Not Detect); Coronavirus HKU1 Not Detected (Not Detect); Coronavirus NL 63 Not Detected (Not Detect); Coronavirus OC43 Not Detected (Not Detect); Human Metapneumovirus Not Detected (Not Detect); Human Rhinovirus/Enterovirus Not Detected (Not Detect); Influenza A Not Detected (Not Detect); Influenza B Not Detected (Not Detect); Mycoplasma pneumoniae Not Detected (Not Detect); Parainfluenza Virus 1 Not Detected (Not Detect); Parainfluenza Virus 2 Not Detected (Not Detect); Parainfluenza Virus 3 Not Detected (Not Detect); Parainfluenza Virus 4 Not Detected (Not Detect); Respiratory Syncytial Virus Not Detected (Not Detect)
== END 2020-01-08 17:14 | disposition home or self-care (01) ==
PROVIDERS: Emergency Provider Emergency Medicine; PCP Family Medicine
DX: J44.1 Chronic obstructive pulmonary disease with (acute) exacerbation (principal); J20.9 Acute bronchitis, unspecified
CPT/HCPCS: 36415; 71045; 80053; 83605; 84145; 85025; 87040; 87070; 87205; 87633; 87635; 96365; 96375; 99284; J1885; J2405; J2930

== ENCOUNTER → 2020-01-11 14:35 | Outpatient (CLI) | payer OTHER, MEDICAID, SELFPAY ==
[2019-11-21 20:59] VITALS: BMI 17.9
[2019-11-22 13:41] VITALS: PULSE 115; RESP 16; O2SAT 90
[2020-01-13 06:08] LABS: COVID19 Sendout Not Detected (Not Detected)
== END ==
PROVIDERS: PCP Family Medicine; Visit Provider Family Medicine
DX: J44.9 Chronic obstructive pulmonary disease, unspecified (principal)
CPT/HCPCS: 87635

== ENCOUNTER → 2020-05-03 14:06 | Outpatient (CLI) | payer OTHER, MEDICAID, SELFPAY ==
[2019-11-21 20:59] VITALS: BMI 17.9
[2019-11-22 13:41] VITALS: PULSE 115; RESP 16; O2SAT 90
--- NOTE | 2020-05-03 14:07 | DI.CT.S_ITS ---
PROCEDURE: CT CHEST WO CON INDICATIONS: Persistent chronic bronchitis in a smoker TECHNIQUE: Noncontrast 5 mm thick sections acquired from the pulmonary apices to the posterior costophrenic angles. 1 mm lung window, 5 mm thick coronal and sagittal and 7 mm axial MIP reformats were then acquired. For radiation dose reduction, the following was used: automated exposure control, adjustment of mA and/or kV according to patient size. COMPARISON: [facility], CR, XR CHEST 1V, 11/21/2019, 16:04. [facility], CR, XR CHEST 1V, 01/08/2020, 14:10. FINDINGS: Image quality: Excellent. Lungs and pleura: Moderate to severe emphysema. There is bronchial wall thickening in the right lower lobe. No acute air space opacities. No pleural effusions or pneumothorax. Central and peripheral airways are patent and normal in caliber. Mediastinum: Heart size is normal. No pericardial effusion. No mediastinal adenopathy by size criteria. Right hilum is prominent. Thoracic aorta and central pulmonary arteries are normal in size. Esophagus is normal in caliber. Small hiatal hernia. Bones and chest wall: No suspicious bony lesions. No vertebral body compression fractures. No axillary or supraclavicular adenopathy by size criteria. Thyroid gland is normal. Abdomen: Visualized upper abdominal solid organs and bowel loops appear normal in the absence of contrast. IMPRESSION: 1. Moderate to severe emphysema. 2. There is bronchial wall thickening in the right lower lobe in keeping with bronchitis. Right hilum is prominent, most likely caused by prominent central pulmonary vasculature but on this noncontrast enhanced CT, it is not possible to differentiate prominent central pulmonary vasculature from enlarged lymph nodes. On follow-up exam, contrast-enhanced CT would be helpful. Dictated by: Venkata Kahn M.D. on 05/03/2020 at 16:55 Approved by: Venkata Kahn M.D. on 05/03/2020 at 18:08
== END ==
PROVIDERS: PCP Family Medicine; Referring Provider Family Medicine; Visit Provider Family Medicine
DX: J43.9 Emphysema, unspecified (principal); R09.02 Hypoxemia; F17.200 Nicotine dependence, unspecified, uncomplicated
CPT/HCPCS: 71250

== ENCOUNTER 2020-05-09 15:19 | Emergency (ER) | payer OTHER, MEDICAID, SELFPAY ==
[2019-11-21 20:59] VITALS: BMI 17.9
[2019-11-22 13:41] VITALS: PULSE 115; RESP 16; O2SAT 90
[2020-05-09] VITALS (9 sets, daily range): BP systolic 127–152; BP diastolic 77–82; PULSE 100–129; RESP 22–34; TEMP 36.6; O2SAT 94–97; BMI 19.2
--- NOTE | 2020-05-09 15:31 | DI.RAD.S_ITS ---
PROCEDURE: XR CHEST 2V INDICATIONS: shortness of breath TECHNIQUE: 2 views of the chest were acquired. COMPARISON: [facility], CT, CT CHEST WO CON, 05/03/2020, 14:15. [facility], CR, XR CHEST 1V, 01/08/2020, 14:10. [facility], CR, XR CHEST 2V, 10/23/2019, 11:50. FINDINGS: Surgical changes and devices: None. Lungs and pleura: Hyperinflation consistent with COPD. No pleural effusions or pneumothorax. Mediastinum: Mediastinal contours are normal. Heart size is normal. Bones and chest wall: No suspicious bony abnormalities. Soft tissues appear unremarkable. IMPRESSION: Severe COPD. No acute cardiopulmonary disease. Dictated by: Venkata Kahn M.D. on 05/09/2020 at 15:20 Approved by: Venkata Kahn M.D. on 05/09/2020 at 15:26
--- NOTE | 2020-05-09 16:05 | ED.SOB ---
HPI - SOB/Dyspnea General Chief Complaint: Shortness of Breath/Dyspnea Stated Complaint: difficulty breathing Time Seen by Provider: 05/09/20 16:04 Source: patient and family Mode of arrival: Wheelchair Limitations: no limitations History of Present Illness HPI Narrative: The patient has a history of COPD, she is on oxygen at home. She is currently taking daily prednisone, she has been weaned down to 2.5 mg daily. Or less to the days she has developed increased cough with increased dyspnea. She has developed a yellow purulent phlegm. She has had intermittent fevers. She has intermittent chest pain. Although she reported quit smoking years ago, she has been sneaking 1 cigarette daily until October of this year. She is now finally quit. She has been treated with long-term steroids, with very in doses. She has been on long prolonged doses of Zithromax, daily for months, as part of her recent management. More recent she has finished a 10 day course of clarithromycin. Sputum that had been clearing, he has become dark yellow again. She has no cardiac disease. She has no peripheral edema. She does have anxiety. Related Data Home Medications Medication Instructions Recorded Confirmed ibuprofen 200 mg PO PRN PRN 11/21/19 04/22/20 melatonin 1 tab PO BEDTIME 11/21/19 04/22/20 nicotine (polacrilex) 4 mg gum 4 mg BUCCAL Q2H 11/29/19 05/09/20 Previous Rx's Medication Instructions Recorded Disabled Parking Permit See Rx Instructions .ROUTE 03/20/19 .COMPLEX #1 unit food supplemt, lactose-reduced 1 each PO 5XD #30229 ml 03/20/19 trazodone 50 mg tablet 150 mg PO HS PRN #90 tab 03/20/19 mometasone-formoterol HFA 200 2 puff INHALATION BID #13 gram 10/23/19 mcg-5 mcg/actuation aerosol inhaler portable oxygen system #1 ea 10/23/19 ipratropium 0.5 mg-albuterol 3 mg 3 ml INHALATION Q6H PRN #360 ml 03/12/20 (2.5 mg base)/3 mL nebulization soln Ventolin HFA 90 mcg/actuation 2 puff INHALATION Q4-6H PRN #8 03/15/20 aerosol inhaler gram NS Portable Oxygen Concentrator #1 ea 04/02/20 alprazolam 0.25 mg tablet 0.25 mg PO BID #30 tab 04/05/20 clarithromycin 500 mg tablet 500 mg PO BID #30 tab 04/22/20 gabapentin 100 mg capsule 100 mg PO BEDTIME #30 cap 04/22/20 prednisone 2.5 mg tablet 2.5 mg PO DAILY #90 tab 04/22/20 diazepam 2 mg tablet 2 mg PO BEDTIME PRN #30 tab 04/30/20 doxycycline hyclate 100 mg PO BID 10 Days #20 cap 05/09/20 prednisone 60 mg PO DAILY 5 Days #15 tab 05/09/20 Allergies Allergy/AdvReac Type Severity Reaction Status Date / Time amitriptyline Allergy Severe screaming Verified 04/30/20 15:37 nightmares cephalexin Allergy Severe Anaphalaxis Verified 04/22/20 13:12 gabapentin Allergy Severe Reduces Verified 04/30/20 15:37 respiratory rate/ difficulty breathing Penicillins AdvReac Mild DIARRHEA Verified 04/22/20 13:12 Review of Systems Constitutional Constitutional: Reports system reviewed and no additional complaints, except as documented, Denies body ache(s), Denies chills, Denies fever(s) and Denies headache(s) ENT Ears, Nose, Mouth, and Throat: Denies vertigo, Denies dizziness, Denies headache(s), Denies nasal congestion and Denies sore throat Cardiovascular Cardiovascular: Denies chest pain, Denies irregular heart rhythm, Denies lightheadedness, Denies palpitations, Reports dyspnea and Reports dyspnea on exertion Respiratory Respiratory: Reports cough, Reports dyspnea, Reports dyspnea on exertion and Denies wheezing Gastrointestinal Gastrointestinal: Denies abdominal pain, Denies change in bowel habits, Denies diarrhea, Denies nausea and Denies vomiting Genitourinary Genitourinary: Denies dysuria Genitourinary: Denies dysuria Musculoskeletal Musculoskeletal: Denies back pain and Denies myalgias Integumentary/Breasts Skin/Breast: Denies erythema and Denies rash Neurologic Neurologic: Denies confusion, Denies vertigo, Denies dizziness and Denies headache(s) Psychiatric Psychiatric: Denies confusion Endocrine Endocrine: Denies palpitations Allergic/Immunologic Allergic/Immunologic: Denies wheezing Patient History Medical History Abnormal chest x-ray (Chronic) Acne (Chronic) Anxiety (Chronic ~2008) Anxiety (Acute) Carpal tunnel syndrome (Chronic ~1982) Chicken pox (Resolved ~1962) Chronic back pain (Chronic ~1967) Chronic cough (Chronic) Colitis (Chronic) COPD (chronic obstructive pulmonary disease) (Chronic) Crohn's disease (Chronic) Fecal incontinence (Chronic ~1981) Fractures (Resolved ~1962) GERD (gastroesophageal reflux disease) (Chronic) Headache (Chronic) Heavy menstrual period (Inactive) History of urinary incontinence (Chronic ~2014) Irregular menstrual cycle (Inactive ~1976) Irritable bowel syndrome (Chronic) Measles (Resolved ~1962) Mumps (Resolved) Neck pain (Chronic) Osteoarthritis (Chronic) Osteoporosis (Chronic) Plantar warts (Chronic) Shoulder pain (Chronic ~2013) TIA (transient ischemic attack) (Chronic ~2014) Surgical History Colon polyps (Resolved) History of appendectomy (Resolved) History of tonsillectomy (Resolved) Family History Mother Breast cancer Grandfather No problems noted. Grandmother Cancer Grandfather Cancer Social History household members: significant other Smoking Status: Former smoker Tobacco: How many years used: 44 quit status: considering quitting alcohol intake: never Smoking Status: Former smoker alcohol intake frequency: 0-2 drinks per day Substance Use Type: does not use Exam Initial Vital Signs Initial Vital Signs: Vital Signs Temperature 97.9 F 05/09/20 15:26 Pulse Rate 129 H 05/09/20 15:26 Respiratory Rate 28 H 05/09/20 15:26 Blood Pressure 138/82 05/09/20 15:26 Pulse Oximetry 96 05/09/20 15:26 Const General: cooperative and well developed Nutritional Appearance: well nourished HENMT Face and sinus: sinuses nontender Throat: posterior oropharynx normal Eyes General: appearance normal, both eyes and all related structures Eyelids: eyelids normal Conjunctivae: conjunctivae normal Sclera: sclerae normal Pupils: PERRL EOM: EOM intact bilaterally Neck Neck: No lymphadenopathy and No JVD Chest Chest: normal inspection of the chest Resp Other: Decreased breath sounds throughout. Mild bibasilar wheezes. No rales. Cardio Rate: regular rate Rhythm: regular rhythm Heart Sounds: S1 normal, S2 normal, no click, no gallops, no murmurs and no rubs Pulses: normal peripheral pulses GI Inspection: non-distended Palpation: soft, no hepatosplenomegaly, No guarding and No tender Auscultation: normal bowel sounds Back/Spine/Pelvis Back: No CVA tenderness Skin General: no rashes or lesions noted, No jaundice and No petechiae Neuro General: patient alert, patient oriented x3, gait normal and no focal motor deficits Speech: speech normal Extrem General: full ROM, no clubbing, cyanosis or edema and no pedal edema Psych Appearance: well kempt Mental Status: mental status grossly normal Attitude: cooperative Thought Content: suicidality Course Course Course Narrative: The patient disease albuterol, as well as IV Solu-Medrol. CXR is consistent with COPD, no infiltrate. Per chronic proctitis I gave Rocephin IV. She was discharged on prednisone as well as doxycycline for 10 days. Her lungs are clear, she is feeling better at the time of discharge. Orders Ordered: ED Orders 05/09/20 15:31 XR chest 2V Stat EKG-12 Lead Stat Measure peak expiratory flow ONCE RT Consult Eval and Treat Now 05/09/20 16:15 Complete Blood Count AUTO DIFF Stat Comprehensive Metabolic Panel Stat D Dimer Stat Lactate (Lactic Acid) Stat Troponin & CK Cardiac Panel Stat 05/09/20 16:30 EKG-12 Lead Stat Discontinued Medications Albuterol (Ventolin Hfa (Vent/Covid R/O)) 4 puff INH NOW ONE Stop: 05/09/20 17:07 Last Admin: 05/09/20 17:12 Dose: 4 puff Documented by: KOLBY Albuterol/Ipratropium (Combivent Respimat) 2 puff INH NOW ONE Stop: 05/09/20 16:27 Last Admin: 05/09/20 17:44 Dose: Not Given Documented by: DENISE Ceftriaxone Sodium/Dextrose (Rocephin) 1 gm in 50 mls @ 100 mls/hr IV NOW ONE Stop: 05/09/20 17:51 Last Infusion: 05/09/20 18:29 Dose: 0 mls/hr Documented by: Admin: 05/09/20 17:50 Dose: 100 mls/hr Documented by: DENISE Methylprednisolone (Solu-Medrol 125 Mg Vial) 125 mg IV NOW ONE Stop: 05/09/20 16:27 Last Admin: 05/09/20 16:55 Dose: 125 mg Documented by: DENISE Vital Signs Vital signs: Vital Signs - 8 hr 05/09/20 15:26 05/09/20 16:33 05/09/20 16:40 Temperature 97.9 F Pulse Rate 129 H 116 H 114 H Respiratory Rate 28 H 28 H 34 H Blood Pressure 138/82 127/77 Pulse Oximetry 96 94 95 05/09/20 17:00 05/09/20 17:25 05/09/20 17:30 Temperature Pulse Rate 109 H 110 H 103 H Respiratory Rate 29 H 24 Blood Pressure 137/82 128/77 Pulse Oximetry 95 96 05/09/20 18:00 05/09/20 18:30 05/09/20 19:00 Temperature Pulse Rate 106 H 103 H 100 H Respiratory Rate 22 27 H Blood Pressure 142/78 H 132/78 152/81 H Pulse Oximetry 96 97 96 MDM - SOB/Dyspnea Lab Data Result diagrams: 05/09/20 16:15 05/09/20 16:15 Labs: Lab Results 05/09/20 05/09/20 05/09/20 Range/Units 16:15 16:15 16:15 WBC 11.5 H (4.5-11.0) X10^3/uL RBC 4.11 (4.0-5.2) X10^6/uL Hgb 12.7 (12.0-16.0) g/dL Hct 38.2 (36-46) % MCV 93.1 (80-100) fL MCH 31.0 (26-34) PG MCHC 33.3 (30-36) % RDW 13.9 (11.6-14.8) % Plt Count 316 (150-400) X10^3/uL Neut % (Auto) 78.6 H (50-75) % Lymph % (Auto) 13.2 L (25-40) % [place] % (Auto) 6.2 (3-14) % Eos % (Auto) 1.8 L (2-4) % Baso % (Auto) 0.2 (0-2) % Neut # (Auto) 9000 H (4614-0589) /uL Lymph # (Auto) 1500 (0347-6000) /uL [place] # (Auto) 700 (0-900) /uL Eos # (Auto) 200 (0-450) /uL Baso # (Auto) 0 (0-100) /uL D-Dimer (<230) ng/mL Sodium 137 (137-145) mmol/L Potassium 4.2 (3.4-5.1) mmol/L Chloride 99 (98-107) mmol/L Carbon Dioxide 31 (22-32) mmol/L BUN 12 (7-17) mg/dL Creatinine 0.60 (0.52-1.04) mg/dL Estimated GFR > 60.0 (>60) mL/min BUN/Creatinine Ratio 20.0 (6-22) Glucose 156 H (80-110) mg/dL Lactate 1.5 (0.7-2.1) mmol/L Calcium 9.5 (8.4-10.2) mg/dL Total Bilirubin 0.3 (0.2-1.3) mg/dL AST 29 (14-36) IU/L ALT 21 (<35) IU/L Alkaline Phosphatase 52 (38-126) U/L Total Creatine Kinase (30-135) U/L CK-MB (CK-2) CK-MB (CK-2) Rel Index Troponin I (0.01-0.034) ng/mL Total Protein 6.9 (6.3-8.2) g/dL Albumin 4.1 (3.5-5.0) g/dL Globulin 2.8 (1.7-4.1) g/dL Albumin/Globulin Ratio 1.5 (1.0-2.8) 05/09/20 05/09/20 Range/Units 16:15 16:15 WBC (4.5-11.0) X10^3/uL RBC (4.0-5.2) X10^6/uL Hgb (12.0-16.0) g/dL Hct (36-46) % MCV (80-100) fL MCH (26-34) PG MCHC (30-36) % RDW (11.6-14.8) % Plt Count (150-400) X10^3/uL Neut % (Auto) (50-75) % Lymph % (Auto) (25-40) % [place] % (Auto) (3-14) % Eos % (Auto) (2-4) % Baso % (Auto) (0-2) % Neut # (Auto) (7206-6790) /uL Lymph # (Auto) (5430-4472) /uL [place] # (Auto) (0-900) /uL Eos # (Auto) (0-450) /uL Baso # (Auto) (0-100) /uL D-Dimer < 200 (<230) ng/mL Sodium (137-145) mmol/L Potassium (3.4-5.1) mmol/L Chloride (98-107) mmol/L Carbon Dioxide (22-32) mmol/L BUN (7-17) mg/dL Creatinine (0.52-1.04) mg/dL Estimated GFR (>60) mL/min BUN/Creatinine Ratio (6-22) Glucose (80-110) mg/dL Lactate (0.7-2.1) mmol/L Calcium (8.4-10.2) mg/dL Total Bilirubin (0.2-1.3) mg/dL AST (14-36) IU/L ALT (<35) IU/L Alkaline Phosphatase (38-126) U/L Total Creatine Kinase 53 (30-135) U/L CK-MB (CK-2) TNP CK-MB (CK-2) Rel Index TNP Troponin I < 0.012 (0.01-0.034) ng/mL Total Protein (6.3-8.2) g/dL Albumin (3.5-5.0) g/dL Globulin (1.7-4.1) g/dL Albumin/Globulin Ratio (1.0-2.8) Urine Dip Bedside Urine Glucose Negative Bedside Urine Bilirubin - Negative Bedside Urine Ketone - Negative Urine Specific [place] 1.010 Bedside Urine Occult Blood - Negative Bedside Urine pH 7.0 Bedside Urine Protein - Negative Bedside Urine Urobilinogen - Negative Bedside Urine Nitrite - Negative Bedside Urine Leukocytes - Negative Esterase Imaging Data Chest x-ray: Radiologist's Impression: 49 Niraj Doyle MD Find Patient Imaging - [facility] [place] Lara 65 F 1955 ACTIVITY DATE EXAM STATUS AUTHOR 05/09/20 15:31 Signed [facility],[address] [address] XRay Report Signed Patient: Leydi East JMR#: [id number] : 5Acct:[id number] Age/Sex: 65 / FDate of Service: 05/09/20 Loc: ED Accession Number: [id number] Procedure: XR chest 2V Ordering Provider: Niraj Doyle MD PROCEDURE: XR CHEST 2V INDICATIONS: shortness of breath TECHNIQUE: 2 views of the chest were acquired. COMPARISON: [facility], CT, CT CHEST WO CON, 05/03/2020, 14:15. [facility], CR, XR CHEST 1V, 01/08/2020, 14:10. [facility], CR, XR CHEST 2V, 10/23/2019, 11:50. FINDINGS: Surgical changes and devices: None. Lungs and pleura: Hyperinflation consistent with COPD. No pleural effusions or pneumothorax. Mediastinum: Mediastinal contours are normal. Heart size is normal. Bones and chest wall: No suspicious bony abnormalities. Soft tissues appear unremarkable. IMPRESSION: Severe COPD. No acute cardiopulmonary disease. Dictated by: Venkata Kahn M.D. on 05/09/2020 at 15:20 Approved by: Venkata Kahn M.D. on 05/09/2020 at 15:26 Discharge Plan Departure Patient Disposition: Home Clinical Impression: COPD exacerbation Discharge Date/Time: 05/09/20 19:28 Instructions: Chronic Obstructive Pulmonary Disease Prescriptions: New doxycycline hyclate 100 mg capsule 100 mg PO BID 10 Days Qty: 20 RF: 0 prednisone 20 mg tablet 60 mg PO DAILY 5 Days Qty: 15 RF: 0 No Action Ensure High Protein liquid 1 each PO 5XD Qty: 09429 RF: 11 ipratropium-albuterol 0.5 mg-3 mg(2.5 mg base)/3 mL solution for nebulization 3 ml INHALATION Q6H PRN (Reason: shortness of breath or wheezing) Qty: 360 RF: 12 albuterol sulfate [Ventolin HFA] 90 mcg/actuation HFA aerosol inhaler 2 puff inhalation Q4-6H PRN (Reason: shortness of breath or wheezing) Qty: 8 RF: 11 (DME) Portable Oxygen Concentrator Qty: 1 RF: 0 diazepam 2 mg tablet 2 mg PO BEDTIME PRN (Reason: sleep) Qty: 30 RF: 2 Disabled Parking Permit See Rx Instructions .ROUTE .COMPLEX Qty: 1 RF: 0 trazodone 50 mg tablet 150 mg PO HS PRN (Reason: insomnia) Qty: 90 RF: 11 Dulera 200-5 mcg/actuation HFA aerosol inhaler 2 puff inhalation BID Qty: 13 RF: 11 (DME) portable oxygen system Qty: 1 RF: 0 clarithromycin 500 mg tablet 500 mg PO BID Qty: 30 RF: 0 gabapentin 100 mg capsule 100 mg PO BEDTIME Qty: 30 RF: 1 prednisone 2.5 mg tablet 2.5 mg PO DAILY Qty: 90 RF: 1 nicotine (polacrilex) 4 mg gum 4 mg BUCCAL Q2H RF: 0 alprazolam 0.25 mg tablet 0.25 mg PO BID Qty: 30 RF: 2 melatonin 1 tab PO BEDTIME RF: 0 ibuprofen 200 mg Tablet 200 mg PO PRN PRN (Reason: pain) RF: 0 Referrals: Fer Nixon DO [Primary Care Provider] -
[2020-05-09 16:33] LABS: Add Manual Diff / Slide Review NO; Basophils Absolute Auto 0 /uL (0-100); Basophils Percent Auto 0.2 % (0-2); Eosinophils Absolute Auto 200 /uL (0-450); Eosinophils Percent Auto 1.8 % (2-4); Hematocrit 38.2 % (36-46); Hemoglobin 12.7 g/dL (12.0-16.0); Lymphocytes Absolute Auto 1500 /uL (1100-4500); Lymphocytes Percent Auto 13.2 % (25-40); Mean Corpuscular HGB Conc 33.3 % (30-36); Mean Corpuscular Volume 93.1 fL (80-100); Monocytes Absolute Auto 700 /uL (0-900); Monocytes Percent Auto 6.2 % (3-14); Neutrophils Absolute Auto 9000 /uL (1500-7000); Neutrophils Percent Auto 78.6 % (50-75); Platelet Count 316 X10^3/uL (150-400); Red Blood Cell Count 4.11 X10^6/uL (4.0-5.2); Red Cell Distribution Width 13.9 % (11.6-14.8); White Blood Cell Count 11.5 X10^3/uL (4.5-11.0)
[2020-05-09 16:42] LABS: Lactate (Lactic Acid) 1.5 mmol/L (0.7-2.1)
[2020-05-09 16:43] LABS: Alanine Aminotransferase 21 IU/L (<35); Albumin 4.1 g/dL (3.5-5.0); Albumin Globulin Ratio 1.5 (1.0-2.8); Alkaline Phosphatase 52 U/L (38-126); Aspartate Aminotransferase 29 IU/L (14-36); Bilirubin Total 0.3 mg/dL (0.2-1.3); Blood Urea Nitrogen 12 mg/dL (7-17); Calcium 9.5 mg/dL (8.4-10.2); Carbon Dioxide 31 mmol/L (22-32); Chloride 99 mmol/L (98-107); Estimated Glomerular Filt Rate > 60.0 mL/min (>60); Globulin 2.8 g/dL (1.7-4.1); Glucose 156 mg/dL (80-110); HEMOLYSIS < 15 (0-50); Potassium 4.2 mmol/L (3.4-5.1); Sodium 137 mmol/L (137-145); Total Protein 6.9 g/dL (6.3-8.2)
[2020-05-09] MEDS: methylPREDNISolone 125 MG/2 ML VIAL IV (16:55)
[2020-05-09 17:05] LABS: Creatine Kinase 53 U/L (30-135)
[2020-05-09 17:07] LABS: D Dimer < 200 ng/mL (<230)
[2020-05-09] MEDS: ALBUTEROL HFA 200 PUFF/18 GM INH (COVID POS/VENT PTS) INH (17:12)
[2020-05-09 17:18] LABS: Troponin I < 0.012 ng/mL (0.01-0.034)
[2020-05-09] MEDS: CEFTRIAXONE 1 GM/50 ML FROZ.PIGGY IV (17:50)
--- NOTE | 2020-05-09 17:53 | PC.NURSE ---
pt wears 2lnc oxygen at home
--- NOTE | 2020-05-09 21:20 | PC.NURSE ---
called to discuss prednisone dose. Wanted to speak to Dr Doyle who is off duty at this time. reports last time patient had 60mg prednisone she hallucinated, was irrational and had rage. States patient has tolerated 20-40mg at a time in past. Advised patient's to continue to administer medication as prescribed but evaluate patient's symptoms. If she appears to not be tolerating then cut back.
== END 2020-05-09 19:28 | disposition home or self-care (01) ==
PROVIDERS: Emergency Provider Emergency Medicine; PCP Family Medicine
DX: J44.1 Chronic obstructive pulmonary disease with (acute) exacerbation (principal)
CPT/HCPCS: 36415; 71046; 80053; 81003; 82550; 83605; 84484; 85025; 85379; 93005; 93010; 94640; 96365; 96375; 99284; A9270; J2930

== ENCOUNTER 2020-09-08 15:30 | Emergency (ER) | payer OTHER, MEDICAID, SELFPAY ==
[2019-11-21 20:59] VITALS: BMI 17.9
[2019-11-22 13:41] VITALS: PULSE 115; RESP 16; O2SAT 90
[2020-09-08 15:30] VITALS: BP 129/73; PULSE 131; RESP 16; TEMP 36.8; O2SAT 99
--- NOTE | 2020-09-08 15:41 | ED_ITS ---
HPI - SOB/Dyspnea General Chief Complaint: Shortness of Breath/Dyspnea Stated Complaint: O2 tank is out, cant breath Time Seen by Provider: 09/08/20 15:40 Source: patient Mode of arrival: Ambulatory Limitations: no limitations History of Present Illness HPI Narrative: Patient is a 65-year-old female who has history of COPD on home oxygen presenting for need for new oxygen tank. She is set up with [facility]. She says she was [facility] [employer] she was going to get out of the car to go into [employer] when she realized her oxygen tank was low and she does not have another 1. She came to the ED. she denies any worsening shortness of breath is no fever chills or cough. She is known to be quite tachycardic she says that she has in the emergency department and all spun up. MD Complaint: shortness of breath Onset (ago): minute(s) Related Data Home Medications Medication Instructions Recorded Confirmed ibuprofen 200 mg PO PRN PRN 11/21/19 07/23/20 melatonin 1 tab PO BEDTIME 11/21/19 07/23/20 nicotine (polacrilex) 4 mg gum 4 mg BUCCAL Q2H 11/29/19 07/23/20 azithromycin 250 mg tablet 250 mg PO DAILY 06/11/20 07/23/20 mometasone-formoterol HFA 200 2 puff INHALATION BID 06/11/20 07/23/20 mcg-5 mcg/actuation aerosol inhaler roflumilast 500 mcg tablet 500 mcg PO DAILY 06/11/20 07/23/20 Previous Rx's Medication Instructions Recorded Disabled Parking Permit See Rx Instructions .ROUTE 03/20/19 .COMPLEX #1 unit mometasone-formoterol HFA 200 2 puff INHALATION BID #13 gram 10/23/19 mcg-5 mcg/actuation aerosol inhaler portable oxygen system #1 ea 10/23/19 ipratropium 0.5 mg-albuterol 3 mg 3 ml INHALATION Q6H PRN #360 ml 03/12/20 (2.5 mg base)/3 mL nebulization soln Ventolin HFA 90 mcg/actuation 2 puff INHALATION Q4-6H PRN #8 03/15/20 aerosol inhaler gram NS Portable Oxygen Concentrator #1 ea 04/02/20 diazepam 2 mg tablet 2 mg PO BEDTIME PRN #90 tab 08/24/20 food supplemt, lactose-reduced 1 each PO 5XD #07309 ml 05/13/20 prednisone 10 mg tablet 10 mg PO DAILY #90 tab 05/13/20 alprazolam 0.25 mg tablet 0.25 mg PO BID #30 tab 07/15/20 clotrimazole 10 mg farzad 10 mg MM 5XD #20 tab 09/03/20 Allergies Allergy/AdvReac Type Severity Reaction Status Date / Time amitriptyline Allergy Severe screaming Verified 07/23/20 13:52 nightmares cephalexin Allergy Severe Anaphalaxis Verified 07/23/20 13:52 gabapentin Allergy Severe Reduces Verified 07/23/20 13:52 respiratory rate/ difficulty breathing Penicillins AdvReac Mild DIARRHEA Verified 07/23/20 13:52 Review of Systems Review of Systems Narrative: GENERAL: Denies chills, fatigue, malaise, fever, sweats, travel HEENT: Denies sinus pain, ear pain, sore throat, difficulty swallowing, neck pa in RESPIRATORY: See HPI CARDIOVASCULAR: Denies chest pain, palpitations, orthopnea, edema GASTROINTESTINAL: Denies nausea, vomiting, abdominal pain, diarrhea, constipation, melena. : Denies dysuria, frequency, incontinence, hematuria, urinary retention, flank pain. MUSCULOSKELETAL: Denies weakness, joint pain, or bony pain SKIN: No rash, no erythema, no pruritus NEUROLOGIC: Denies weakness, dizziness, headache, numbness, change in speech, confusion PSYCHIATRIC: No concerning psychosocial issues. 12 point review of systems is negative except for those stated above and HPI Patient History Medical History (Updated 09/08/20 @ 15:43 by Seble Pal DO) Abnormal chest x-ray Acne Anxiety (~2008) Anxiety Carpal tunnel syndrome (~1982) Chicken pox (~1962) Chronic back pain (~1967) Chronic cough Colitis COPD (chronic obstructive pulmonary disease) Crohn's disease Fecal incontinence (~1981) Fractures (~1962) GERD (gastroesophageal reflux disease) Headache Heavy menstrual period History of urinary incontinence (~2014) Irregular menstrual cycle (~1976) Irritable bowel syndrome Measles (~1962) Mumps Neck pain Osteoarthritis Osteoporosis Plantar warts Shoulder pain (~2013) TIA (transient ischemic attack) (~2014) Surgical History Colon polyps History of appendectomy History of tonsillectomy Family History Mother Breast cancer Grandfather No problems noted. Grandmother Cancer Grandfather Cancer Social History household members: significant other Smoking Status: Former smoker Tobacco: How many years used: 44 quit status: considering quitting alcohol intake: never Smoking Status: Former smoker alcohol intake frequency: 0-2 drinks per day Substance Use Type: does not use Exam Initial Vital Signs Initial Vital Signs: Vital Signs Temperature 98.3 F 09/08/20 15:30 Pulse Rate 131 H 09/08/20 15:30 Respiratory Rate 16 09/08/20 15:30 Blood Pressure 129/73 09/08/20 15:30 Pulse Oximetry 99 09/08/20 15:30 GENERAL: Alert thin chronically ill well-appearing female and in no acute distress. HEENT: Head atraumatic,EOMI, pupils reactive, face symmetric, moist mucous membranes CARDIOVASCULAR: Regular rate and rhythm without murmurs, rubs or gallops. RESPIRATORY: Breath sounds equal bilaterally, no wheezes rales or rhonchi. EXTREMITIES: Normal range of motion, no clubbing or edema. Neurovascularly intact NEUROLOGICAL: Alert and oriented x4.Normal gait and speech. Cranial nerves II through XII grossly intact. SKIN: Warm, dry, no laceration, no petechiae, no rashes or lesions. Course Vital Signs Vital signs: Vital Signs - 8 hr 09/08/20 15:30 09/08/20 15:50 09/08/20 16:11 Temperature 98.3 F Pulse Rate 131 H 123 H 118 H Respiratory Rate 16 16 Blood Pressure 129/73 129/73 Pulse Oximetry 99 99 MDM - SOB/Dyspnea MDM Narrative Medical decision making narrative: Patient is set up with home oxygen. Respiratory was able to replace her tank without any issue. She is noted to be quite tachycardic. I reviewed previous vitals she did have a heart rate of 130 in the clinic, it has improved down into the 120s just with resting in the emergency department. At this time I this time I do not believe any further testing or imaging to be done. Patient has no complaints other than she ran out of oxygen in her tank. Discharge Plan Departure Patient Disposition: Home Clinical Impression: Chronic respiratory failure with hypoxia Instructions: DI for Hypoxia Activity Restrictions/Additional Instructions: *You have been diagnosed with chronic hypoxia *What to do: Wear oxygen as you are supposed to *Continue to take medications as directed *Follow up with your primary care provider in 2-3 days *Return to ER if you should have any new, worsening or concerning symptoms Prescriptions: No Action ipratropium-albuterol 0.5 mg-3 mg(2.5 mg base)/3 mL solution for nebulization 3 ml INHALATION Q6H PRN (Reason: shortness of breath or wheezing) Qty: 360 RF: 12 albuterol sulfate [Ventolin HFA] 90 mcg/actuation HFA aerosol inhaler 2 puff inhalation Q4-6H PRN (Reason: shortness of breath or wheezing) Qty: 8 RF: 11 (DME) Portable Oxygen Concentrator Qty: 1 RF: 0 Ensure High Protein Liquid 1 each PO 5XD Qty: 79394 RF: 11 alprazolam 0.25 mg tablet 0.25 mg PO BID Qty: 30 RF: 2 clotrimazole 10 mg farzad 10 mg MM 5XD Qty: 20 RF: 2 Disabled Parking Permit See Rx Instructions .ROUTE .COMPLEX Qty: 1 RF: 0 Dulera 200-5 mcg/actuation HFA aerosol inhaler 2 puff inhalation BID Qty: 13 RF: 11 (DME) portable oxygen system Qty: 1 RF: 0 azithromycin 250 mg tablet 250 mg PO DAILY RF: 0 Dulera 200-5 mcg/actuation HFA aerosol inhaler 2 puff INHALATION BID RF: 0 roflumilast 500 mcg tablet 500 mcg PO DAILY RF: 0 nicotine (polacrilex) 4 mg gum 4 mg BUCCAL Q2H RF: 0 prednisone 10 mg tablet 10 mg PO DAILY Qty: 90 RF: 1 diazepam 2 mg tablet 2 mg PO BEDTIME PRN (Reason: sleep) Qty: 90 RF: 1 melatonin 1 tab PO BEDTIME RF: 0 ibuprofen 200 mg Tablet 200 mg PO PRN PRN (Reason: pain) RF: 0 Referrals: Fer Nixon, DO [Primary Care Provider] -
[2020-09-08 15:50] VITALS: PULSE 123
--- NOTE | 2020-09-08 15:54 | PC.NURSE ---
patient with known home O2 use. She was shopping away from home (lives [facility]) and ran out of . She came to the ED to get more Oxygen. She is not in acute distress. Her heart rate if elevated at 124 but she states that this is normal for her. She does not have chest pain, or any other pain that is new to her.
[2020-09-08 16:11] VITALS: BP 129/73; PULSE 118; RESP 16; O2SAT 99
== END 2020-09-08 16:13 | disposition home or self-care (01) ==
PROVIDERS: Emergency Provider Emergency Medicine; PCP Family Medicine
DX: J96.11 Chronic respiratory failure with hypoxia (principal); J44.9 Chronic obstructive pulmonary disease, unspecified
CPT/HCPCS: 99284; 99285

== ENCOUNTER → 2021-12-12 14:44 | Outpatient (CLI) | payer MEDICARE, MEDICAID, SELFPAY ==
[2019-11-21 20:59] VITALS: BMI 17.9
[2019-11-22 13:41] VITALS: PULSE 115; RESP 16; O2SAT 90
[2021-12-12 16:39] LABS: HCO3 ABG 33 mmol/L (22-26); PCO2 ABG 52.3 mmHg (35-45); PO2 ABG 78 mmHg (80-100)
[2021-12-12 16:40] LABS: Fractionated Inspired Oxygen 28; Oxygen Saturation ABG 95 % (95-100); TCO2 ABG 34 mmol/L (21-31)
== END ==
PROVIDERS: PCP Family Medicine; Referring Provider Internal Medicine Critical Care Medicine; Visit Provider Internal Medicine Critical Care Medicine
DX: J96.11 Chronic respiratory failure with hypoxia (principal); J96.12 Chronic respiratory failure with hypercapnia
CPT/HCPCS: 36415; 36600; 82805

== ENCOUNTER → 2024-01-28 16:04 | Outpatient (CLI) | payer MEDICARE, MEDICAID, SELFPAY ==
[2019-11-21 20:59] VITALS: BMI 17.9
[2019-11-22 13:41] VITALS: PULSE 115; RESP 16; O2SAT 90
--- NOTE | 2024-01-28 16:07 | DI.RAD.S_ITS ---
PROCEDURE: XR CHEST 2V INDICATIONS: eval COPD TECHNIQUE: 2 views of the chest were acquired. COMPARISON: [facility], CR, XR CHEST 2V, 05/09/2020, 15:42. FINDINGS: Surgical changes and devices: None. Lungs and pleura: Lungs are clear. No pleural effusions or pneumothorax. Hyperinflation of the lungs, likely secondary to COPD, unchanged from prior exam. Mediastinum: Mediastinal contours are normal. Heart size is normal. Bones and chest wall: No suspicious bony abnormalities. Soft tissues appear unremarkable. IMPRESSION: No acute cardiopulmonary abnormality is seen. Dictated by: Trista Samuels M.D. on 01/28/2024 at 17:29 Approved by: Trista Samuels M.D. on 01/28/2024 at 17:30
== END ==
PROVIDERS: PCP Family Medicine; Referring Provider Family Medicine; Visit Provider Family Medicine
DX: J44.1 Chronic obstructive pulmonary disease with (acute) exacerbation (principal); R09.02 Hypoxemia
CPT/HCPCS: 71046

== ENCOUNTER → 2024-05-26 15:02 | Outpatient (CLI) | payer MEDICARE, MEDICAID, SELFPAY ==
[2019-11-21 20:59] VITALS: BMI 17.9
[2019-11-22 13:41] VITALS: PULSE 115; RESP 16; O2SAT 90
--- NOTE | 2024-05-26 15:03 | DI.US.S_ITS ---
PROCEDURE: US CAROTID DOPPLER BI INDICATIONS: eval dizziness TECHNIQUE: Color and pulse Doppler interrogation was performed of both carotid systems, with image documentation and velocity measurements. COMPARISON: None. FINDINGS: Stenosis calculations are based on SRU (Society of Radiologists in Ultrasound) criteria. Right side: Brachial blood pressure: 103/68 mm Hg. Common carotid artery peak systolic velocity: 71 cm/sec. Internal carotid artery peak systolic velocity: 71 cm/sec. Internal carotid artery end diastolic velocity: 22 cm/sec. External carotid artery peak systolic velocity: 76 cm/sec. ICA/CCA peak systolic ratio: 1.0 . Baldwin scale imaging description: Soft and calcified plaque Percent internal carotid artery stenosis: Mild less than 50% . Vertebral artery: Flow direction is antegrade. Left side: Brachial blood pressure: 103/70 mm Hg. Common carotid artery peak systolic velocity: 79 cm/sec. Internal carotid artery peak systolic velocity: 86 cm/sec. Internal carotid artery end diastolic velocity: 36 cm/sec. External carotid artery peak systolic velocity: 84 cm/sec. ICA/CCA peak systolic ratio: 1.1 . Baldwin scale imaging description: Calcified plaque Percent internal carotid artery stenosis: Mild less than 50% . Vertebral artery: Flow direction is antegrade. IMPRESSION: Mild listed 50% stenosis of the origins of the internal carotid arteries. Dictated by: Susi Echavarria MD, PhD on 05/29/2024 at 12:38 Approved by: Susi Echavarria MD, PhD on 05/29/2024 at 12:39
== END ==
PROVIDERS: PCP Family Medicine; Referring Provider Family Medicine; Visit Provider Family Medicine
DX: R42 Dizziness and giddiness (principal); I65.23 Occlusion and stenosis of bilateral carotid arteries
CPT/HCPCS: 93880

== ENCOUNTER → 2024-08-14 15:41 | Outpatient (CLI) | payer MEDICARE, MEDICAID, SELFPAY ==
[2019-11-21 20:59] VITALS: BMI 17.9
[2019-11-22 13:41] VITALS: PULSE 115; RESP 16; O2SAT 90
[2024-08-14 16:12] LABS: Add Manual Diff / Slide Review NO; Basophils Absolute Auto 0 /uL (0-100); Basophils Percent Auto 0.3 % (0-2); Eosinophils Absolute Auto 0 /uL (0-450); Eosinophils Percent Auto 0.1 % (2-4); Hematocrit 39.8 % (36-46); Lymphocytes Absolute Auto 1000 /uL (1100-4500); Lymphocytes Percent Auto 7.9 % (25-40); Mean Corpuscular HGB Conc 32.7 % (30-36); Mean Corpuscular Hemoglobin 31.1 PG (26-34); Mean Corpuscular Volume 95.2 fL (80-100); Monocytes Absolute Auto 300 /uL (0-900); Monocytes Percent Auto 2.5 % (3-14); Neutrophils Absolute Auto 10900 /uL (1500-7000); Neutrophils Percent Auto 89.2 % (50-75); Platelet Count 386 X10^3/uL (150-400); Red Blood Cell Count 4.18 X10^6/uL (4.0-5.2); Red Cell Distribution Width 13.5 % (11.6-14.8); White Blood Cell Count 12.2 X10^3/uL (4.5-11.0)
[2024-08-14 16:41] LABS: Alanine Aminotransferase 28 IU/L (<35); Albumin 4.3 g/dL (3.5-5.0); Albumin Globulin Ratio 1.5 (1.0-2.8); Alkaline Phosphatase 63 U/L (38-126); Aspartate Aminotransferase 35 IU/L (14-36); BUN Creatinine Ratio 13.7 (6-22); Bilirubin Total 0.5 mg/dL (0.2-1.3); Blood Urea Nitrogen 10 mg/dL (7-17); Calcium 9.6 mg/dL (8.4-10.2); Carbon Dioxide 37 mmol/L (22-32); Chloride 99 mmol/L (98-107); Cholesterol 232 mg/dL (140-199); Estimated Glomerular Filt Rate > 60 mL/min (>60); Globulin 2.8 g/dL (1.7-4.1); Glucose 139 mg/dL (80-110); HDL Cholesterol 61 mg/dL (40-60); HEMOLYSIS < 15 (0-50); LDL Cholesterol Calculated 156 mg/dL (<100); Potassium 4.9 mmol/L (3.4-5.1); Sodium 140 mmol/L (137-145); Total Protein 7.1 g/dL (6.3-8.2); Triglycerides 77 mg/dL (35-150)
== END ==
PROVIDERS: PCP Family Medicine; Referring Provider Family Medicine; Visit Provider Family Medicine
DX: J44.9 Chronic obstructive pulmonary disease, unspecified (principal); R09.02 Hypoxemia; J96.11 Chronic respiratory failure with hypoxia; J96.12 Chronic respiratory failure with hypercapnia; R59.1 Generalized enlarged lymph nodes
CPT/HCPCS: 36415; 80053; 80061; 85025

== ENCOUNTER → 2024-10-11 13:38 | Outpatient (CLI) | payer MEDICARE, MEDICAID, SELFPAY ==
[2019-11-21 20:59] VITALS: BMI 17.9
[2019-11-22 13:41] VITALS: PULSE 115; RESP 16; O2SAT 90
--- NOTE | 2024-10-11 13:43 | DI.ECHO.S_ITS ---
[facility] : : [address] : [place] : : [id number] : : Phone: [phone] Echocardiogram Report + + :Name: LEONARDO REAL Study Date: 10/11/2024 Height: 64 in : :[facility] ReadingLocation: Weight: 102 lb : : Gender: Female BSA: 1.5 m2 : :: 1955 Age: 69 yrs BP: 130/79 mmHg: :Reason For Study: TACHYCARDIA : :Ordering Physician: MESHA, : :AURORA Performed By: Merari Paulino : :Referring: AURORA ZIMMER : + + Interpretation Summary The patient was in sinus tachycardia with heart rates between 110-120 bpm during the exam. The ejection fraction is estimated to be 50-55%. Diastolic function could not be accurately assessed due to tachycardia. The right ventricle is normal in size and function. There is mild tricuspid regurgitation. Pulmonary artery pressures cannot be estimated because of the lack of a measurable TR jet velocity but the IVC suggests a CVP of around 3 mmHg. Procedure: A two-dimensional transthoracic echocardiogram with color flow and Doppler was performed. The study quality was technically adequate. There is no prior echocardiogram noted for this patient. The patient was in sinus tachycardia with heart rates between 110-120 bpm during the exam. Left Ventricle: The left ventricular cavity is small. There is normal left ventricular wall thickness. The ejection fraction is estimated to be 50-55%. Septal motion is consistent with conduction abnormality. Diastolic function could not be accurately assessed due to tachycardia. Right Ventricle: The right ventricle is normal in size and function. Atria: The left atrial size is normal. Right atrial size is normal. There is no Doppler evidence for an interatrial shunt. Mitral Valve: The mitral valve leaflets appear borderline thickened, but open well. There is trace mitral regurgitation. Aortic Valve: The aortic valve is trileaflet. The aortic valve opens well. There is no aortic valve stenosis. No aortic regurgitation is present. Tricuspid Valve: The tricuspid valve leaflets are thin and pliable. There is mild tricuspid regurgitation. Pulmonary artery pressures cannot be estimated because of the lack of a measurable TR jet velocity but the IVC suggests a CVP of around 3 mmHg. Pulmonic Valve: The pulmonic valve leaflets are thin and pliable; valve motion is normal. There is no pulmonic valvular regurgitation. Great Vessels: The aortic root is normal size. The dimensions of the ascending aorta are normal. The IVC is of normal diameter and collapses greater than 50% with a sniff. This suggests a low right atrial pressure of 3 mm Hg. Pericardium/ Pleura There is no pericardial effusion. There is no pleural effusion. MMode/2D Measurements & Calculations LVIDd: 3.3 cm LVOT diam: 2.0 cm LVIDs: 2.1 cm Ao root diam: 3.1 cm FS: 34.9 % asc Aorta Diam: 2.7 cm EPSS: 0.42 cm IVSd: 0.76 cm LVPWd: 0.97 cm LV lezama. diameter/BSA (cm/m^2): 2.2 LV sys. diameter/BSA (cm/m^2): 1.5 LA A2 area: 13.4 cm2 RA long axis: 3.7 cm LA A4 area: 11.5 cm2 RA area: 9.0 cm2 LA length (vol): 4.8 cm RA vol: 18.3 ml LA vol: 27.6 ml RA : 12.5 ml/m2 LA vol index: 18.8 ml/m2 IVC diam: 1.1 cm RVD1 (basal): 2.8 cm RVD2 (mid): 1.6 cm TAPSE: 1.7 cm Doppler Measurements & Calculations Ao V2 max: 117.0 cm/sec LVOT Max Paolo: 84.4 cm/sec Ao V2 mean: 85.6 cm/sec LV V1 max P.9 mmHg Ao max P.5 mmHg LV V1 VTI: 15.0 cm Ao mean P.2 mmHg JULIAN(I,D): 2.5 cm2 Ao V2 VTI: 18.2 cm JULIAN(V,D): 2.2 cm2 sev ratio: 0.82 JULIAN indexed to BSA (cm^2/m^2): 1.7 Med Peak E' Paolo: 8.1 cm/sec TR max paolo: 248.8 cm/sec Lat Peak E' Paolo: 8.9 cm/sec TR max P.8 mmHg PA pr(Accel): 39.2 mmHg SV(LVOT): 45.8 ml Reading Physician:04:03 PM
== END ==
PROVIDERS: PCP Family Medicine; Referring Provider Family Medicine; Visit Provider Family Medicine
DX: I07.1 Rheumatic tricuspid insufficiency (principal); I49.9 Cardiac arrhythmia, unspecified; R00.0 Tachycardia, unspecified
CPT/HCPCS: 93306

== ENCOUNTER 2025-04-12 14:20 | Emergency (ER) | payer MEDICARE, MEDICAID, SELFPAY ==
[2019-11-21 20:59] VITALS: BMI 17.9
[2019-11-22 13:41] VITALS: PULSE 115; RESP 16; O2SAT 90
[2025-04-12] VITALS (7 sets, daily range): BP systolic 120–163; BP diastolic 74–89; PULSE 104–120; RESP 17–29; TEMP 37.1; O2SAT 90–99; BMI 17.8
--- NOTE | 2025-04-12 14:50 | EKG_ITS ---
[address] [address] Test Date: 2025-04-12 Pat Name: Leydi East Department: Room: Gender: Female Facs Teacher: STEFANO : 1955 Requested By: Order Number: [id number] Reading MD: Luciano Barkley Measurements Intervals [place] Rate: 107 P: 79 MT: 116 QRS: 80 QRSD: 74 T: 77 QT: 338 QTc: 451 Interpretive Statements Sinus tachycardia Right atrial enlargement Electronically Signed On 04-27-2025 8:08:07 PDT by Luciano Barkley
--- NOTE | 2025-04-12 16:33 | ED.GENADULT ---
HPI - General Adult General Chief complaint: Shortness of Breath/Dyspnea Stated complaint: Sent over from Doctor for low O2 Time Seen by Provider: 04/12/25 14:28 Source: patient Mode of arrival: Wheelchair History of Present Illness HPI narrative: 70-year-old woman with end-stage COPD, on chronic steroid, home oxygen, has nebulizers inhalers and is on azithromycin 3 times a week significant anxiety component as well. Was seen by her securities counselor after walking in from the parking lot with her portable concentrate or not working as well as it typically does you felt that she was sick enough that she needed emergency department evaluation. Saturations were reportedly in the low 80s. She felt that she was close to her baseline. On arrival in the emergency department with higher concentration oxygen and place saturations are in the upper 90s, she is at her baseline level of respiratory concern able to speak in complete sentences. Not reporting increasing cough or fevers. She is using all of her medications as prescribed at home. No chest pain no nausea, vomiting, palpitations and no recent fevers or chills Related Data Home Medications ?Medication ?Instructions ?Recorded ?Confirmed melatonin 1 tab PO BEDTIME 11/21/19 04/12/25 acetaminophen 325 mg tablet 325 mg PO ONCE PRN 03/02/25 04/12/25 (Tylenol) aspirin 81 mg tablet,delayed 81 mg PO DAILY 03/02/25 04/12/25 release (Adult Aspirin Regimen) diltiazem HCl 30 mg tablet 30 mg PO BID 04/12/25 04/12/25 Previous Rx's ?Medication ?Instructions ?Recorded portable oxygen system #1 ea 10/23/19 Portable Oxygen Concentrator #1 ea 04/02/20 food supplemt, lactose-reduced 1 ea PO 5XD #35,550 mL 08/24/22 (Ensure High Protein oral liquid) Portable Nebulizer #1 ea 04/08/23 epinephrine 0.3 mg/0.3 mL 0.3 mg (0.3 mL) IM Q4H PRN 07/01/23 injection, auto-injector (EpiPen hypersensitivity reaction #2 ea 2-Frank) inhalational spacing device #10 ea 09/30/23 (Aerochamber MV spacer) Disabled Parking Permint #1 ea 01/28/24 verapamil 40 mg tablet 40 mg PO BID #180 tabs 08/29/24 Ventolin HFA 90 mcg/actuation 2 puff inhalation Q4-6H PRN 07/17/24 aerosol inhaler (albuterol sulfate) shortness of breath or wheezing #8 grams ipratropium 0.5 mg-albuterol 3 mg 3 ml inhalation Q6H PRN shortness 09/25/24 (2.5 mg base)/3 mL nebulization of breath or wheezing #360 mL soln prednisone 10 mg tablet 10 mg PO DAILY #90 tabs 09/28/24 roflumilast 500 mcg tablet 500 mcg PO DAILY #90 tabs 11/07/24 (Daliresp) diazepam 5 mg tablet 5 mg PO BEDTIME PRN sleep #90 tabs 12/22/24 azithromycin 250 mg tablet 250 mg PO DAILY #36 tabs 01/13/25 mometasone-formoterol HFA 200 2 puff inhalation BID #13 grams 01/22/25 mcg-5 mcg/actuation aerosol inhaler (Dulera) alprazolam 0.25 mg tablet 0.25 mg PO BID anxiety related to 02/17/25 shortness of breath #30 tabs lorazepam 1 mg tablet 1 mg PO TID PRN anxiety #90 tabs 03/02/25 Allergies Allergy/AdvReac Type Severity Reaction Status Date / Time amitriptyline Allergy Severe screaming Verified 04/12/25 13:52 nightmares cephalexin Allergy Severe Anaphalaxis Verified 04/12/25 13:52 gabapentin Allergy Severe Reduces Verified 04/12/25 13:52 respiratory rate/ difficulty breathing Penicillins AdvReac Mild DIARRHEA Verified 04/12/25 13:52 Review of Systems Review of Systems Narrative: Pertinent positive and negative findings as per HPI Patient History Medical History Drug-induced adrenocortical insufficiency Immunodeficiency due to conditions classified elsewhere Crohn's disease, unspecified, without complications Tachycardia Anxiety Plantar warts Acne Osteoarthritis COPD (chronic obstructive pulmonary disease) Chronic cough Abnormal chest x-ray Anxiety (~2008) TIA (transient ischemic attack) (~2014) Headache Neck pain Shoulder pain (~2013) Osteoporosis Fractures (~1962) Chronic back pain (~1967) Carpal tunnel syndrome (~1982) Mumps Measles (~1962) Chicken pox (~1962) Irregular menstrual cycle (~1976) Heavy menstrual period History of urinary incontinence (~2014) Fecal incontinence (~1981) Irritable bowel syndrome GERD (gastroesophageal reflux disease) Crohn's disease Colitis Unintentional weight loss of 10% body weight within 6 months Injury of left foot Surgical History History of tonsillectomy History of appendectomy Colon polyps Family History Mother Breast cancer Grandfather No problems noted. Grandmother Cancer Grandfather Cancer Social History household members: significant other Smoking Status: Former smoker Tobacco: How many years used: 44 quit status: considering quitting alcohol intake: never Smoking Status: Former smoker tobacco type: cigarettes alcohol intake frequency: 0-2 drinks per day Exam Initial Vital Signs Initial Vital Signs: Vital Signs Temperature 98.8 F 04/12/25 14:26 Pulse Rate 120 H 04/12/25 14:26 Respiratory Rate 24 04/12/25 14:26 Blood Pressure 120/74 04/12/25 14:26 Pulse Oximetry 99 04/12/25 14:26 Oxygen Delivery Method Nasal Cannula 04/12/25 14:26 Oxygen Flow Rate 6 04/12/25 14:26 General: Chronically ill-appearing, oxygen in place, able to cooperate with exam and speak in full sentences HEENT: Dry mucous membranes, normal sclera with reactive pupils, Respiratory: With poor overall movement, no rhonchi, minimal scattered wheeze, no retractions, no significant respiratory distress Cardiac: Chronic tachycardia without murmur Abdomen: Soft, nontender, no rebound or guarding, no flank pain Skin: Quite thin, multiple bruises in various stages of healing no obvious cellulitis Neurologic: Grossly neurologically intact with no obvious asymmetries or abnormalities Extremities: No trauma, no lower extremity edema Psych: Cooperative, appropriate insight and affect Course Vital Signs Vital signs: Vital Signs - 8 hr 04/12/25 14:26 04/12/25 14:40 04/12/25 15:00 Temperature 98.8 F Pulse Rate 120 H 113 H 109 H Respiratory Rate 24 19 Blood Pressure 120/74 Pulse Oximetry 99 90 L 99 Oxygen Delivery Method Nasal Cannula Nasal Cannula Oxygen Flow Rate 6 3 04/12/25 15:30 04/12/25 15:30 Temperature Pulse Rate 118 H Respiratory Rate 29 H Blood Pressure 163/89 H Pulse Oximetry 95 Oxygen Delivery Method Oxygen Flow Rate Medical Decision Making MDM Narrative Medical decision making narrative: 70-year-old woman with chronic COPD acutely short of breath after walking from her car into the pulmonologists lobby with question whether her portable concentrate or was actually functioning. He is quite concerned with her overall picture and saturations in the low 80s sent her to the emergency department. On initial evaluation, saturations are back up to the upper 90s on 6 L she is again weaned back down to 2.5 L and remains in the low 90s with no signs of respiratory distress. No fever, chronic tachycardia no change to overall cough Patient would like to leave after medical screening exam. At this time she is on chronic steroids, chronic antibiotics, has all nebulizers inhalers and oxygen available to her at home. She feels she is at her baseline. There is no signs of worsening symptoms. With shared decision-making we opted to not proceed with any additional workup and she is discharged home. Discharge Plan Departure Patient Disposition: Home Clinical Impression: COPD with hypoxia Activity Restrictions/Additional Instructions: Thank you for coming in today It seems that your oxygen levels were in the low 80s when you are seen in your securities counselor office which caused him significant concern. With higher oxygen levels and decreased exertion by the time you got to the emergency department levels were back up in the upper 90s. You feel that you are at your baseline. You have your chronic tachycardia, I am not hearing significant rhonchi, there was no evidence of congestive heart failure on your clinical exam, you do not appear to be in severe respiratory distress. With shared decision-making we decided to not do any additional workup. You do need to continue all of your usual medications including your chronic steroids both oral and inhaled, chronic nebulizers and the azithromycin 3 times a week. If you feel that you are worse, please return to the ER Prescriptions: No Action (DME) Portable Oxygen Concentrator Qty: 1 0RF Rx Instructions: As directed Ensure High Protein Liquid 1 ea PO 5XD Qty: 24139 11RF Rx Instructions: Patient to consume 5 ensure drinks daily. (DME) Portable Nebulizer See Rx Instructions .Route .MEDSUPPLY Qty: 1 0RF Rx Instructions: Use as directed every 4-6 hours for SOB albuterol sulfate [Ventolin HFA] 90 mcg/actuation HFA aerosol inhaler 2 puff inhalation Q4-6H PRN (Reason: shortness of breath or wheezing) Qty: 8 11RF Rx Instructions: Two puffs every 4-6 hours as needed for SOB/wheezing/cough ipratropium-albuterol 0.5 mg-3 mg(2.5 mg base)/3 mL solution for nebulization 3 ml INHALATION Q6H PRN (Reason: shortness of breath or wheezing) Qty: 360 12RF Rx Instructions: 1 bullet inhaled every 6 hours as needed. Please provide one month supply roflumilast [Daliresp] 500 mcg tablet 500 mcg PO DAILY Qty: 90 3RF diazepam 5 mg tablet 5 mg PO BEDTIME PRN (Reason: sleep) Qty: 90 3RF azithromycin 250 mg tablet 250 mg PO DAILY Qty: 36 5RF Dulera 200-5 mcg/actuation HFA aerosol inhaler 2 puff inhalation BID Qty: 13 2RF Rx Instructions: 2 inh twice daily routinely alprazolam 0.25 mg tablet 0.25 mg PO BID Qty: 30 3RF Rx Instructions: Take 1-2 tablets daily as needed for shortness of breath, anxiety Avoid Sandoz brand alprazolam (DME) portable oxygen system Qty: 1 0RF Rx Instructions: As directed, Dispense brand per insurance with supplies and nasal cannula acetaminophen [Tylenol] 325 mg tablet 325 mg PO ONCE PRN aspirin [Adult Aspirin Regimen] 81 mg tablet,delayed release (DR/EC) 81 mg PO DAILY lorazepam 1 mg tablet 1 mg PO TID PRN (Reason: anxiety) Qty: 90 2RF epinephrine [EpiPen 2-Frank] 0.3 mg/0.3 mL auto-injector 0.3 mg IM Q4H PRN (Reason: hypersensitivity reaction) Qty: 2 1RF (DME) Disabled Parking Permint See Rx Instructions .ROUTE .MEDSUPPLY Qty: 1 0RF Rx Instructions: I find this patient to be medically disabled and qualified for Disabled Parking as indicated and signed on the Accompanying Disabled Parking Application for individuals. verapamil 40 mg tablet 40 mg PO BID Qty: 180 1RF melatonin 1 tab PO BEDTIME (DME) Aerochamber MV Spacer See Rx Instructions .Route Qty: 10 0RF Rx Instructions: As directed prednisone 10 mg tablet 10 mg PO DAILY Qty: 90 2RF diltiazem HCl 30 mg tablet 30 mg PO BID Referrals: Fer Nixon DO [Primary Care Provider, Family Practice] Stand Alone Forms: Patient Portal/API
== END 2025-04-12 16:58 | disposition home or self-care (01) ==
PROVIDERS: Emergency Provider Emergency Medicine; PCP Family Medicine
DX: J44.9 Chronic obstructive pulmonary disease, unspecified (principal); J96.21 Acute and chronic respiratory failure with hypoxia
CPT/HCPCS: 93005; 99283; 99284

== ENCOUNTER → 2025-04-25 07:26 | Outpatient (CLI) | payer MEDICARE, MEDICAID, SELFPAY ==
[2019-11-21 20:59] VITALS: BMI 17.9
[2019-11-22 13:41] VITALS: PULSE 115; RESP 16; O2SAT 90
--- NOTE | 2025-04-25 07:30 | DI.NM.S_ITS ---
PROCEDURE: NM BANDAR PERF SPECT R&S PHARM Rest and pharmacological stress myocardial perfusion SPECT with gated imaging and ejection fraction RADIOPHARMACEUTICAL: 12 mCi Tc-99m tetrafosmin IV at rest and 26.9 mCi Tc-99m tetrafosmin IV at peak effect of pharmacological stress. [id number] was performed. INDICATIONS: CHEST PAIN TECHNIQUE: Radiopharmaceutical was injected at peak stress test, and also at rest. SPECT images were obtained. SPECT myocardial perfusion images were displayed in short axis, horizontal long axis, and vertical long axis views. Gated images were reviewed using [employer] software. COMPARISON: None. CARDIAC STRESS: A pharmacologic stress test was performed under the supervision of an attending staff, using an infusion of lexiscan 0.4mg IV X1. Hemodynamic data: There is normal blood pressure and heart rate response to pharmacologic stress. Symptoms: The patient non-diagnostic chest pain with lexiscan. Aminophylline: none EKG: No diagnostic changes of ischemia; no ectopy. FINDINGS: Raw data: There is good myocardial uptake of radiotracer. No significant motion artifacts. [id number] ratio is 0.32 (normal is less than 0.38 for tetrafosmin tracer). Left ventricle function: Gated images demonstrate normal left ventricular wall thickening. No segmental wall motion abnormalities. No transient ischemic dilation; TID is 0.94 (normal less than 1.3). Left ventricle resting end diastolic volume is 44 mL. Left ventricle stress ejection fraction is 75%; normal range is above 45%. Myocardial perfusion: There is normal distribution of activity in the right and left ventricular myocardium. No fixed or reversible perfusion defects. SSS 0. IMPRESSION: Low risk, normal pharm nuclear stress test from inducible ischemia standpoint. 1) No perfusion evidence of ischemia or infarction. SSS 0. 2) Normal left ventricular size, wall motion, and systolic function (EF post stress 75%). 3) No diagnostic ST changes during the study. 4) Non-diagnostic chest pain with lexiscan. 5) No prior nuclear stress test available for comparison. Dictated by: Indra Kim MD on 04/26/2025 at 14:21 Approved by: Indra Kim MD on 04/26/2025 at 14:23
== END ==
PROVIDERS: PCP Family Medicine; Referring Provider Internal Medicine; Visit Provider Internal Medicine
DX: R07.9 Chest pain, unspecified (principal)
CPT/HCPCS: 78452; 93017; A9502; J2785

== ENCOUNTER → 2025-09-11 13:02 | Outpatient (CLI) | payer MEDICARE, MEDICAID, SELFPAY ==
[2019-11-21 20:59] VITALS: BMI 17.9
[2019-11-22 13:41] VITALS: PULSE 115; RESP 16; O2SAT 90
[2025-09-11 13:42] LABS: Allen Test for ABG Passed? Positive; Blood Gas Collection Site Right Radial; Delivery System Cannula; HCO3 ABG 41 mmol/L (23-27); Oxygen Saturation ABG 87 % (95-100); PCO2 ABG 72.0 mmHg (35-45); PO2 ABG 59 mmHg (80-100); TCO2 ABG 40 mmol/L (23-27)
== END ==
PROVIDERS: PCP Family Medicine; Referring Provider Internal Medicine Critical Care Medicine; Visit Provider Internal Medicine Critical Care Medicine
DX: J96.11 Chronic respiratory failure with hypoxia (principal); J96.12 Chronic respiratory failure with hypercapnia
CPT/HCPCS: 36600; 82805